=== PATIENT | female | born 1945 | race Two or more races ===

== ENCOUNTER 2017-01-01 22:25 | Emergency (ER) | payer MEDICARE, MEDICAID ==
[~2017-01-01] VITALS: Ht 160 cm; Wt 77.1 kg
[~2017-01-01 22:25] MED LIST: ASPI-231 PO; ATOR40TA52 PO; BEN10T GT; CLOP75TA41 PO; FLUT50SP13; FURO20TA3 PO; ISOS60TA24 PO; MULTCAP45 PO; OXY5T PO; POTA10TA34 PO; POTA10TA51 PO; SACC250C PO
[2017-01-02 04:39] LABS: Basophils # (auto) 0 uL; Basophils % (auto) 0.4 % (0.0-2.0); Eosinophils # (auto) 0.2 uL; Eosinophils % (auto) 6.6 % (0.0-7.0); Hematocrit 32.5 % (36.0-46.0); Hemoglobin 10.3 g/dL (12.2-16.2); Lymphocytes # (auto) 1.3 uL; Lymphocytes % (auto) 38.8 % (10.0-50.0); Mean Corpuscular Hemoglobin 30.2 pg (28.0-32.0); Mean Corpuscular Hgb Conc. 31.7 g/dL (32.0-36.0); Mean Corpuscular Volume 95.3 fL (80.0-100.0); Mean Platelet Volume 8.1 fL (7.4-10.4); Monocytes # (auto) 0.4 uL; Monocytes % (auto) 10.7 % (0.0-12.0); Neutrophils # (auto) 1.4 uL; Neutrophils % (auto) 43.5 % (37.0-80.0); Platelet Count (auto) 196 10^3/uL (140-450); White Blood Cell 3.3 10^3/uL (4.4-10.8)
[2017-01-02 04:58] LABS: Albumin 3.4 g/dL (3.4-5.0); BUN/Creatinine Ratio 11.8; Potassium 3.4 mmol/L (3.5-5.1)
[2017-01-02 05:00] LABS: Bilirubin, Total 0.3 mg/dL (0.2-1.0); Total Protein 6.9 g/dL (6.4-8.2)
[2017-01-02 05:46] LABS: Urine Bilirubin Negative (Negative); Urine Color Yellow (Yellow); Urine Glucose Normal (Normal); Urine Ketone Negative (Negative); Urine Mucus FEW (None Seen); Urine Nitrite Negative (Negative); Urine RBC 874 /hpf (0 - 4); Urine Squamous Epithelial Cell FEW /hpf (<5); Urine pH 5.5 (5.0-8.0)
[2017-01-02 06:00] LABS: Urine Blood 3+ /uL (Negative)
[2017-01-02] MEDS ORDERED: ONDANSETRON ODT 4 MG TAB PO ONE (07:15)
[2017-01-02] MEDS ORDERED: HYDROmorphone HCL 2 MG/ML VL IM ONE (07:15)
[2017-01-02 07:56] VITALS: BP 139/68
== END 2017-01-02 09:53 | disposition home or self-care (01) ==
LOC: ER 22:32
DX: N20.0 Calculus of kidney (principal); N28.1 Cyst of kidney, acquired; F17.210 Nicotine dependence, cigarettes, uncomplicated; K42.9 Umbilical hernia without obstruction or gangrene; Z88.6 Allergy status to analgesic agent; Z88.8 Allergy status to other drugs, medicaments and biological substances; Z91.041 Radiographic dye allergy status; Z87.442 Personal history of urinary calculi; Z95.1 Presence of aortocoronary bypass graft; Z90.710 Acquired absence of both cervix and uterus; Z90.49 Acquired absence of other specified parts of digestive tract
CPT/HCPCS: 36415; 74176; 80053; 80307; 81001; 85025; 96372; 99285; J1170; Q0162

== ENCOUNTER 2017-11-17 21:21 | Emergency (ER) | payer MEDICARE, MEDICAID ==
[~2017-11-17] VITALS: Ht 157.5 cm; Wt 74.8 kg
[2017-11-17 23:00] LABS: Basophils # (auto) 0 uL; Basophils % (auto) 0.5 % (0.0-2.0); Eosinophils # (auto) 0.1 uL; Hematocrit 39.1 % (36.0-46.0); Hemoglobin 12.8 g/dL (12.2-16.2); Lymphocytes # (auto) 0.9 uL; Lymphocytes % (auto) 22.3 % (10.0-50.0); Mean Corpuscular Hgb Conc. 32.8 g/dL (32.0-36.0); Mean Corpuscular Volume 100.4 fL (80.0-100.0); Monocytes # (auto) 0.4 uL; Monocytes % (auto) 9.5 % (0.0-12.0); Neutrophils # (auto) 2.7 uL; Neutrophils % (auto) 65.7 % (37.0-80.0); Nucleated Red Blood Cells % 0.2 %; Platelet Count (auto) 184 10^3/uL (140-450); Red Blood Cells 3.89 10^6/uL (4.0-5.20); White Blood Cell 4.1 10^3/uL (4.4-10.8)
[2017-11-17 23:12] LABS: INR 0.98 (0.9-1.15); Partial Thromboplastin Time 31.1 sec (22.64-33.71); Prothrombin Time 10.7 sec (9.37-12.3)
[2017-11-17 23:28] LABS: Alanine Aminotransferase 38 U/L (13-56); Albumin 3.5 g/dL (3.4-5.0); Anion Gap 8 (5-15); Aspartate Aminotransferase 31 U/L (15-37); BUN/Creatinine Ratio 10.2; Blood Urea Nitrogen 9 mg/dL (7-18); Carbon Dioxide 26 mmol/L (21-32); Chloride 108 mmol/L (98-107); GFR African American 81 mL/min; GFR Non-African American 67 mL/min; Glucose 102 mg/dL (74-106); Potassium 3.8 mmol/L (3.5-5.1); Sodium 142 mmol/L (136-145)
[2017-11-17 23:37] LABS: Alkaline Phosphatase 80 U/L (45-117); Bilirubin, Total 0.3 mg/dL (0.2-1.0); Total Protein 7.3 g/dL (6.4-8.2)
[2017-11-18 04:29] LABS: Urine Bacteria NONE SEEN /hpf (None Seen); Urine Blood 3+ /uL (Negative); Urine Specific Gravity 1.019 (1.001-1.035); Urine WBC 3 /hpf (0 - 5)
[2017-11-18 11:52] VITALS: BP 123/61
== END 2017-11-18 11:54 | disposition home or self-care (01) ==
LOC: ER 21:21
DX: I50.9 Heart failure, unspecified (principal); N39.0 Urinary tract infection, site not specified; R42 Dizziness and giddiness; Z95.1 Presence of aortocoronary bypass graft; Z79.82 Long term (current) use of aspirin; Z88.6 Allergy status to analgesic agent; Z88.8 Allergy status to other drugs, medicaments and biological substances; Z91.041 Radiographic dye allergy status; Z90.710 Acquired absence of both cervix and uterus
CPT/HCPCS: 36415; 71046; 78582; 80053; 81001; 83880; 84484; 85025; 85379; 85610; 85730; 93005; 99285; A9540; A9558

== ENCOUNTER 2017-12-24 22:00 | Emergency (ER) | payer MEDICARE, MEDICAID ==
[~2017-12-24] VITALS: Ht 162.6 cm; Wt 81.6 kg
[2017-12-25 07:55] LABS: Basophils # (auto) 0 uL; Basophils % (auto) 0.4 % (0.0-2.0); Eosinophils # (auto) 0.1 uL; Eosinophils % (auto) 3.2 % (0.0-7.0); Hematocrit 42.6 % (36.0-46.0); Hemoglobin 14.2 g/dL (12.2-16.2); Lymphocytes # (auto) 1.4 uL; Lymphocytes % (auto) 38.6 % (10.0-50.0); Mean Corpuscular Hgb Conc. 33.3 g/dL (32.0-36.0); Mean Corpuscular Volume 99.1 fL (80.0-100.0); Monocytes # (auto) 0.3 uL; Monocytes % (auto) 9.5 % (0.0-12.0); Neutrophils # (auto) 1.7 uL; Neutrophils % (auto) 48.3 % (37.0-80.0); Nucleated Red Blood Cells % 0.1 %; Platelet Count (auto) 188 10^3/uL (140-450); Red Blood Cells 4.29 10^6/uL (4.0-5.20); Red Cell Distribution Width 15.2 % (11.8-14.3); White Blood Cell 3.6 10^3/uL (4.4-10.8)
[2017-12-25] MEDS ORDERED: SODIUM CHLORIDE 0.9% 1,000 ML IV ONE (07:56)
[2017-12-25 08:10] LABS: Alanine Aminotransferase 30 U/L (13-56); Albumin 3.6 g/dL (3.4-5.0); Anion Gap 8 (5-15); Aspartate Aminotransferase 26 U/L (15-37); Blood Urea Nitrogen 8 mg/dL (7-18); Carbon Dioxide 28 mmol/L (21-32); Chloride 106 mmol/L (98-107); GFR African American 101 mL/min; GFR Non-African American 83 mL/min; Glucose 90 mg/dL (74-106); Magnesium 2.5 mg/dL (1.6-2.6); Potassium 3.6 mmol/L (3.5-5.1); Sodium 142 mmol/L (136-145)
[2017-12-25 08:12] LABS: Partial Thromboplastin Time 28.7 sec (22.64-33.71); Prothrombin Time 10.9 sec (9.37-12.3)
[2017-12-25 08:14] LABS: Alkaline Phosphatase 95 U/L (45-117); Bilirubin, Total 0.5 mg/dL (0.2-1.0)
[2017-12-25] MEDS ORDERED: HYDROcodone-ACET 5/325MG TAB PO ONE (09:00)
[2017-12-25 09:16] VITALS: BP 124/63
== END 2017-12-25 12:14 | disposition home or self-care (01) ==
LOC: EDBD 22:00 → ER 22:03
DX: S00.03XA Contusion of scalp, initial encounter (principal); I25.10 Atherosclerotic heart disease of native coronary artery without angina pectoris; N39.0 Urinary tract infection, site not specified; R55 Syncope and collapse; I50.9 Heart failure, unspecified; E78.5 Hyperlipidemia, unspecified; Z90.89 Acquired absence of other organs; Z90.710 Acquired absence of both cervix and uterus; Z95.1 Presence of aortocoronary bypass graft; Z79.899 Other long term (current) drug therapy; Z88.8 Allergy status to other drugs, medicaments and biological substances; Z91.041 Radiographic dye allergy status; W22.8XXA Striking against or struck by other objects, initial encounter; Y93.89 Activity, other specified; Y99.8 Other external cause status; Y92.89 Other specified places as the place of occurrence of the external cause
CPT/HCPCS: 36415; 70450; 71045; 80053; 83735; 83880; 84443; 84484; 85025; 85379; 85610; 85730; 93005; 94761

== ENCOUNTER 2018-07-25 11:31 | Emergency (ER) | payer MEDICARE, MEDICAID ==
[~2018-07-25] VITALS: Ht 170.2 cm; Wt 93.0 kg
[~2018-07-25 11:31] MED LIST changes: -POTA10TA34 PO; +POTA1TAB61 PO
[2018-07-25] MEDS ORDERED: FUROSEMIDE 40 MG/4 ML VIAL IV ONE (12:00)
[2018-07-25 13:17] VITALS: BP 129/68
[2018-07-25 13:54] LABS: Urine Bacteria FEW /hpf (None Seen); Urine Blood TRACE /uL (Negative); Urine Mucus FEW (None Seen); Urine Specific Gravity 1.006 (1.001-1.035); Urine WBC 1 /hpf (0 - 5)
[2018-07-25 14:11] LABS: Basophils # (auto) 0 uL; Basophils % (auto) 0.4 % (0.0-2.0); Eosinophils # (auto) 0.1 uL; Eosinophils % (auto) 2.2 % (0.0-7.0); Hematocrit 36.1 % (36.0-46.0); Lymphocytes # (auto) 0.8 uL; Lymphocytes % (auto) 20.8 % (10.0-50.0); Mean Corpuscular Hemoglobin 32.9 pg (28.0-32.0); Mean Corpuscular Hgb Conc. 33.1 g/dL (32.0-36.0); Mean Corpuscular Volume 99.2 fL (80.0-100.0); Monocytes # (auto) 0.4 uL; Monocytes % (auto) 9.6 % (0.0-12.0); Neutrophils # (auto) 2.6 uL; Nucleated Red Blood Cells % 0.1 %; Platelet Count (auto) 133 10^3/uL (140-450); Red Blood Cells 3.64 10^6/uL (4.0-5.20); Red Cell Distribution Width 14.4 % (11.8-14.3); White Blood Cell 3.9 10^3/uL (4.4-10.8)
[2018-07-25 14:17] LABS: Albumin 3.4 g/dL (3.4-5.0); Anion Gap 6 (5-15); Aspartate Aminotransferase 31 U/L (15-37); BUN/Creatinine Ratio 11.7; Blood Urea Nitrogen 9 mg/dL (7-18); Calcium 8.3 mg/dL (8.5-10.1); Carbon Dioxide 30 mmol/L (21-32); Chloride 106 mmol/L (98-107); GFR African American 95 mL/min; GFR Non-African American 78 mL/min; Glucose 89 mg/dL (74-106); Potassium 3.9 mmol/L (3.5-5.1); Sodium 142 mmol/L (136-145)
[2018-07-25 14:21] LABS: INR 0.98 (0.9-1.15); Partial Thromboplastin Time 30.5 sec (23.78-33.04); Prothrombin Time 10.5 sec (9.27-12.13)
[2018-07-25 14:25] LABS: Alanine Aminotransferase 39 U/L (13-56); Alkaline Phosphatase 83 U/L (45-117); Bilirubin, Total 0.3 mg/dL (0.2-1.0); Total Protein 7.1 g/dL (6.4-8.2)
== END 2018-07-25 15:42 | disposition home or self-care (01) ==
LOC: ER 11:31 → EDBD 11:31 → ER 15:42
DX: I11.0 Hypertensive heart disease with heart failure (principal); I50.9 Heart failure, unspecified; J98.01 Acute bronchospasm; Z90.710 Acquired absence of both cervix and uterus; Z90.89 Acquired absence of other organs; Z95.1 Presence of aortocoronary bypass graft; Z79.899 Other long term (current) drug therapy; Z88.6 Allergy status to analgesic agent; Z88.8 Allergy status to other drugs, medicaments and biological substances; Z91.041 Radiographic dye allergy status
CPT/HCPCS: 36415; 71045; 80053; 81001; 83880; 84484; 85025; 85610; 85730; 93005; 96374; 99284; J1940

== ENCOUNTER 2020-04-20 22:30 | Emergency (ER) | payer MEDICARE, MEDICAID ==
[~2020-04-20] VITALS: Ht 157.5 cm; Wt 71.2 kg
[~2020-04-20 22:30] MED LIST changes: -BEN10T GT; +BENA10TA10 GT
[2020-04-21 05:00] VITALS: BP 100/40
== END 2020-04-21 06:40 | disposition home or self-care (01) ==
LOC: ER 22:30 → EDBD 22:30 → ER 04-21 06:40
DX: S16.1XXA Strain of muscle, fascia and tendon at neck level, initial encounter (principal); S80.02XA Contusion of left knee, initial encounter; S80.01XA Contusion of right knee, initial encounter; X58.XXXA Exposure to other specified factors, initial encounter; Y93.89 Activity, other specified; Y92.89 Other specified places as the place of occurrence of the external cause; Y99.8 Other external cause status
CPT/HCPCS: 70450; 70486; 72125; 72128; 73560; 73620

== ENCOUNTER 2024-01-27 22:53 | Inpatient (IN) | payer MEDICARE, MEDICAID ==
[~2024-01-27] VITALS: Ht 157.5 cm; Wt 83.6 kg
[~2024-01-27 22:53] MED LIST changes: -ASPI-231 PO; +ASPI1TAB20 PO; -BENA10TA10 GT; +BENA10TA16 GT; -CLOP75TA41 PO; +CLOP75TA70 PO; +ISOS1TAB29 PO; -ISOS60TA24 PO; +POTA-215 PO; +POTA-36 PO; -POTA10TA51 PO; -POTA1TAB61 PO
[2024-01-28 00:57] VITALS: BP 138/73; PULSE 79; RESP 17; TEMP 98.1
[2024-01-28 01:41] LABS: Basophils # (auto) 0.1 10 ^3/uL (0-0.2); Basophils % (auto) 1.4 % (0.0-2.0); Eosinophils # (auto) 0.2 10 ^3/uL (0-0.8); Eosinophils % (auto) 6.3 % (0.0-7.0); Hematocrit 34.9 % (36.0-46.0); Hemoglobin 11.4 g/dL (12.2-16.2); Lymphocytes # (auto) 1.6 10 ^3/uL (0.4-5.4); Lymphocytes % (auto) 42.8 % (10.0-50.0); Mean Corpuscular Hgb Conc. 32.7 g/dL (32.0-36.0); Mean Corpuscular Volume 103.8 fL (80.0-100.0); Monocytes # (auto) 0.4 10 ^3/uL (0-1.3); Monocytes % (auto) 11.3 % (0.0-12.0); Neutrophils # (auto) 1.4 10 ^3/uL (1.6-8.6); Neutrophils % (auto) 38.2 % (37.0-80.0); Nucleated Red Blood Cells % 0.3 %; Red Blood Cells 3.36 10^6/uL (4.0-5.20); White Blood Cell 3.7 10^3/uL (4.4-10.8)
[2024-01-28 01:51] LABS: Chloride 107 mmol/L (98-107); Potassium 3.2 mmol/L (3.5-5.1); Sodium 141 mmol/L (136-145)
[2024-01-28 01:52] LABS: Anion Gap 8 (5-15); Carbon Dioxide 26 mmol/L (20-30)
[2024-01-28 01:57] LABS: BUN/Creatinine Ratio 6.8 (10.0-20.0); Blood Urea Nitrogen < 5 mg/dL (9-23); Glucose 90 mg/dL (74-106)
[2024-01-28] MEDS ORDERED: hydrALAZINE HCL 20 MG/ML VL IV PRN (02:45)
[2024-01-28 03:10] LABS: Albumin 4.5 g/dL (3.2-4.8); Bilirubin, Total 0.8 mg/dL (0.2-1.0); Total Protein 7.8 g/dL (5.7-8.2)
[2024-01-28] MEDS ORDERED: NITROGLYCERIN 0.4 MG SL TAB SL PRN (06:30)
[2024-01-28] MEDS ORDERED: DOCUSATE SOD 100 MG CAP PO PRN (06:30)
[2024-01-28 10:08] VITALS: PULSE 81; RESP 23; O2SAT 93
[2024-01-28] MEDS: ASPirin 81 mg TAB PO SCH (11:28)
[2024-01-28] MEDS: FUROSEMIDE 20 MG/2 ML VIAL IV SCH (12:09)
[2024-01-28] MEDS: POTASSIUM EFFERVESENT TAB 25 MEQ PO ONE (12:39)
[2024-01-28] MEDS: cefTRIAXone 1GM/50ML D5W 50 ML IV ONE (13:03)
[2024-01-28] MEDS: MORPHINE SULFATE INJ 2 MG/ml SYRG IV PRN (13:04)
[2024-01-28 13:07] LABS: Urine Bacteria FEW /hpf (None Seen); Urine Blood 1+ /uL (Negative); Urine Clarity Turbid (Clear); Urine Color Light-Yellow (Yellow); Urine Protein, UAD Negative (Negative); Urine Specific Gravity 1.005 (1.001-1.035); Urine Urobilinogen Normal (Negative); Urine WBC 1 /hpf (0 - 5); Urine pH 6.5 (5.0-9.0)
[2024-01-28] MEDS: SODIUM CHLOR 0.9% PF (SALINE LOCK) 10ML VIAL/SYR IV SCH (14:03)
[2024-01-28] MEDS: oxyCODONE ER 10 MG TAB PO PRN (18:28)
[2024-01-28 19:45] VITALS: PULSE 78; RESP 20; O2SAT 96
[2024-01-28] MEDS: ATORVASTATIN 20 MG TAB PO SCH (22:00)
[2024-01-28] MEDS: oxyCODONE HCL 5MG TAB PO PRN (23:29)
[2024-01-29] VITALS (8 sets, daily range): BP systolic 105–143; BP diastolic 56–80; PULSE 70–86; RESP 16–22; TEMP 97.6–98.1; O2SAT 95–98
[2024-01-29 06:15] LABS: Basophils # (auto) 0 10 ^3/uL (0-0.2); Basophils % (auto) 1.4 % (0.0-2.0); Eosinophils # (auto) 0.2 10 ^3/uL (0-0.8); Eosinophils % (auto) 7.1 % (0.0-7.0); Hematocrit 28.3 % (36.0-46.0); Hemoglobin 9.5 g/dL (12.2-16.2); Lymphocytes # (auto) 1.5 10 ^3/uL (0.4-5.4); Lymphocytes % (auto) 52.3 % (10.0-50.0); Mean Corpuscular Hemoglobin 33.9 pg (28.0-32.0); Mean Corpuscular Hgb Conc. 33.7 g/dL (32.0-36.0); Mean Corpuscular Volume 100.8 fL (80.0-100.0); Monocytes # (auto) 0.4 10 ^3/uL (0-1.3); Neutrophils # (auto) 0.7 10 ^3/uL (1.6-8.6); Neutrophils % (auto) 26.2 % (37.0-80.0); Nucleated Red Blood Cells % 0.3 %; Red Blood Cells 2.81 10^6/uL (4.0-5.20); Red Cell Distribution Width 15.6 % (11.8-14.3); White Blood Cell 2.8 10^3/uL (4.4-10.8)
[2024-01-29 06:33] LABS: Alanine Aminotransferase 57 U/L (7-40); Albumin 3.6 g/dL (3.2-4.8); Alkaline Phosphatase 68 U/L (46-116); Anion Gap 3 (5-15); Aspartate Aminotransferase 73 U/L (13-40); BUN/Creatinine Ratio 14.9 (10.0-20.0); Blood Urea Nitrogen 10 mg/dL (9-23); Calcium 9.2 mg/dL (8.7-10.4); Carbon Dioxide 33 mmol/L (20-30); Chloride 107 mmol/L (98-107); Glucose 98 mg/dL (74-106); Potassium 3.7 mmol/L (3.5-5.1); Sodium 143 mmol/L (136-145)
[2024-01-29 06:34] LABS: Bilirubin, Total 0.5 mg/dL (0.2-1.0); Total Protein 6.4 g/dL (5.7-8.2)
[2024-01-29] MEDS: cefTRIAXone 1GM/50ML D5W 50 ML IV SCH (09:09)
[2024-01-29] MEDS ORDERED: APIX5TAB PO (19:26)
[2024-01-29] MEDS ORDERED: OXYC15TA PO (19:26)
[2024-01-29] MEDS ORDERED: LISI10TA34 PO (19:26)
[2024-01-29] MEDS ORDERED: LEVO750T40 PO (19:26)
[2024-01-30 01:00] VITALS: BP 128/66; PULSE 71; RESP 20; TEMP 98.1; O2SAT 97
[2024-01-30 08:00] VITALS: PULSE 72; O2SAT 97
[2024-01-30 09:00] VITALS: BP 128/59; PULSE 71; RESP 18; O2SAT 97
[2024-01-30 17:00] VITALS: BP 117/61; PULSE 83; RESP 19; TEMP 97.8; O2SAT 100
[2024-01-30 20:00] VITALS: PULSE 82; O2SAT 97
[2024-01-30 21:00] VITALS: BP 121/59; PULSE 80; RESP 20; TEMP 98; O2SAT 91
[2024-01-31 01:00] VITALS: BP 133/52; PULSE 76; RESP 20; TEMP 99.2; O2SAT 91
[2024-01-31 08:00] VITALS: PULSE 70
[2024-01-31 09:00] VITALS: BP 121/62; PULSE 74; RESP 18; TEMP 98.4; O2SAT 98
[2024-01-31 13:00] VITALS: BP 124/43; PULSE 72; RESP 17; TEMP 99; O2SAT 100
[2024-01-31 20:00] VITALS: PULSE 77; RESP 18; O2SAT 97
[2024-01-31 21:00] VITALS: BP 143/71; PULSE 77; RESP 18; TEMP 97.7; O2SAT 97
[2024-02-01] VITALS (7 sets, daily range): BP systolic 112–140; BP diastolic 34–67; PULSE 70–85; RESP 16–19; TEMP 97.7–98.3; O2SAT 92–96
[2024-02-01] MEDS: ONDANSETRON HCL 4 MG/2 ML VIAL IV PRN (10:31)
[2024-02-01] MEDS: MORPHINE SULFATE INJ 2 MG/ml SYRG IV PRN (15:48)
[2024-02-02 05:00] VITALS: BP 142/69; PULSE 77; RESP 20; TEMP 97.7; O2SAT 97
[2024-02-02 07:30] VITALS: PULSE 69; RESP 18; O2SAT 93
[2024-02-02 07:30] LABS: Basophils # (auto) 0 10 ^3/uL (0-0.2); Eosinophils # (auto) 0.1 10 ^3/uL (0-0.8); Hemoglobin 10.7 g/dL (12.2-16.2); Lymphocytes # (auto) 1.3 10 ^3/uL (0.4-5.4); Monocytes # (auto) 0.3 10 ^3/uL (0-1.3); Neutrophils # (auto) 0.6 10 ^3/uL (1.6-8.6)
[2024-02-02 07:36] LABS: Basophils % (auto) 1.6 % (0.0-2.0); Chloride 105 mmol/L (98-107); Hematocrit 31.7 % (36.0-46.0); Lymphocytes % (auto) 54.7 % (10.0-50.0); Mean Corpuscular Hemoglobin 34.7 pg (28.0-32.0); Mean Corpuscular Hgb Conc. 33.7 g/dL (32.0-36.0); Mean Corpuscular Volume 103.1 fL (80.0-100.0); Monocytes % (auto) 13.2 % (0.0-12.0); Neutrophils % (auto) 24.5 % (37.0-80.0); Nucleated Red Blood Cells % 0.4 %; Red Blood Cells 3.08 10^6/uL (4.0-5.20); Red Cell Distribution Width 15.7 % (11.8-14.3); Sodium 140 mmol/L (136-145); White Blood Cell 2.4 10^3/uL (4.4-10.8)
[2024-02-02 07:37] LABS: Anion Gap 7 (5-15); Calcium 9.8 mg/dL (8.7-10.4); Carbon Dioxide 28 mmol/L (20-30)
[2024-02-02 07:42] LABS: BUN/Creatinine Ratio 21.7 (10.0-20.0); Blood Urea Nitrogen 15 mg/dL (9-23); Glucose 95 mg/dL (74-106)
[2024-02-02] MEDS: MORPHINE SULFATE INJ 2 MG/ml SYRG IV PRN (08:55)
[2024-02-02 17:00] VITALS: BP 122/60; PULSE 72; RESP 18; TEMP 98.2; O2SAT 97
[2024-02-02 20:00] VITALS: PULSE 79; PULSE 80; RESP 18; O2SAT 94
[2024-02-02 21:00] VITALS: BP 129/59; PULSE 80; RESP 18; TEMP 98.1; O2SAT 94
[2024-02-03 05:00] VITALS: BP 134/78; PULSE 70; RESP 18; TEMP 97.9; O2SAT 98
[2024-02-03] MEDS ORDERED: GADOTERATE MEG 10 MMOL/20ml INJ (0.5MMOL/ml) IV ONE (07:12)
[2024-02-03 08:00] VITALS: PULSE 74; RESP 18; O2SAT 99
[2024-02-03 09:09] LABS: Hepatitis B Core Total AB Negative (Negative)
[2024-02-03 09:50] LABS: Hepatitis A Total Antibody Negative (Negative); Hepatitis B Surface Antibody Negative (Negative); Hepatitis B Surface Antigen Negative (Negative); Hepatitis C Antibody Negative (Negative)
[2024-02-03 13:00] VITALS: BP 138/73; PULSE 70; RESP 18; TEMP 97.9; O2SAT 98
[2024-02-03 17:00] VITALS: BP 139/80; PULSE 73; RESP 16; TEMP 98.1; O2SAT 99
[2024-02-03 20:00] VITALS: BP 124/43; PULSE 78; PULSE 82; PULSE 89; RESP 18; TEMP 98; O2SAT 94
[2024-02-03 21:00] VITALS: BP 124/43; PULSE 78; RESP 18; TEMP 98; O2SAT 100
[2024-02-04 05:00] VITALS: BP 125/49; PULSE 74; RESP 18; TEMP 97.8; O2SAT 92
[2024-02-04 08:00] VITALS: PULSE 73; PULSE 80; RESP 17; O2SAT 97
[2024-02-04 08:42] VITALS: BP 125/64; PULSE 80; RESP 17; TEMP 97.8; O2SAT 97
[2024-02-04] MEDS ORDERED: CIPR-173 PO (10:56)
[2024-02-04] MEDS ORDERED: OXY20CRT PO (10:56)
[2024-02-04 12:27] VITALS: BP 125/64; PULSE 80; RESP 17; TEMP 97.8; O2SAT 97
== END 2024-02-04 13:50 | disposition home or self-care (01) | DRG 872 ==
LOC: ER 22:53 → TELE 01-28 06:21 → TELE-EAST 01-28 23:40
PROVIDERS: ADMIT Nurse Practitioner Family; ATTEND Family Medicine
DX: A41.9 Sepsis, unspecified organism (principal); D61.818 Other pancytopenia; N39.0 Urinary tract infection, site not specified; I50.32 Chronic diastolic (congestive) heart failure; I11.0 Hypertensive heart disease with heart failure; E87.6 Hypokalemia; E78.00 Pure hypercholesterolemia, unspecified; G89.4 Chronic pain syndrome; K59.00 Constipation, unspecified; K76.89 Other specified diseases of liver; N20.0 Calculus of kidney; I48.91 Unspecified atrial fibrillation; Z95.1 Presence of aortocoronary bypass graft; Z88.6 Allergy status to analgesic agent; Z88.5 Allergy status to narcotic agent; Z88.8 Allergy status to other drugs, medicaments and biological substances; Z79.899 Other long term (current) drug therapy; Z88.3 Allergy status to other anti-infective agents; Z82.49 Family history of ischemic heart disease and other diseases of the circulatory system; Z90.710 Acquired absence of both cervix and uterus; Z90.49 Acquired absence of other specified parts of digestive tract; Z91.041 Radiographic dye allergy status; I25.2 Old myocardial infarction; Z86.73 Personal history of transient ischemic attack (TIA), and cerebral infarction without residual deficits; Z87.442 Personal history of urinary calculi; Z86.718 Personal history of other venous thrombosis and embolism; Z79.02 Long term (current) use of antithrombotics/antiplatelets; Z79.01 Long term (current) use of anticoagulants; Z79.82 Long term (current) use of aspirin; Z79.891 Long term (current) use of opiate analgesic; Z82.3 Family history of stroke; Z80.0 Family history of malignant neoplasm of digestive organs
CPT/HCPCS: 36415; 74176; 76705; 80048; 80053; 81001; 82040; 82105; 82247; 82378; 83880; 84075; 84155; 84450; 84460; 84484; 85025; 86704; 86706; 86708; 86803; 87045; 87086; 87340; 87427; 93005; 93306; 96361; 96365; G0378; J2405

== ENCOUNTER 2024-02-04 21:31 | Inpatient (IN) | payer MEDICARE, MEDICAID ==
[~2024-02-04] VITALS: Ht 157.5 cm; Wt 93.2 kg
[~2024-02-04 21:31] MED LIST changes: +APIX5TAB PO; +CIPR-173 PO; +LEVO750T40 PO; +LISI10TA34 PO; +OXY20CRT PO; +OXYC15TA PO
[2024-02-04 23:26] LABS: Basophils # (auto) 0 10 ^3/uL (0-0.2); Basophils % (auto) 1.2 % (0.0-2.0); Chloride 105 mmol/L (98-107); Eosinophils # (auto) 0.1 10 ^3/uL (0-0.8); Lymphocytes # (auto) 1.3 10 ^3/uL (0.4-5.4); Monocytes # (auto) 0.2 10 ^3/uL (0-1.3); Neutrophils # (auto) 1.4 10 ^3/uL (1.6-8.6); Potassium 3.9 mmol/L (3.5-5.1); Sodium 140 mmol/L (136-145); White Blood Cell 3.1 10^3/uL (4.4-10.8)
[2024-02-04 23:27] LABS: Anion Gap 4 (5-15); Calcium 10.2 mg/dL (8.5-10.1); Carbon Dioxide 31 mmol/L (20-30)
[2024-02-04 23:28] LABS: Eosinophils % (auto) 3.3 % (0.0-7.0); Hematocrit 36.3 % (36.0-46.0); Lymphocytes % (auto) 43.3 % (10.0-50.0); Mean Corpuscular Hgb Conc. 33.2 g/dL (32.0-36.0); Mean Corpuscular Volume 102.4 fL (80.0-100.0); Monocytes % (auto) 6.2 % (0.0-12.0); Nucleated Red Blood Cells % 0.4 %; Red Blood Cells 3.54 10^6/uL (4.0-5.20); Red Cell Distribution Width 16.1 % (11.8-14.3)
[2024-02-04 23:32] LABS: BUN/Creatinine Ratio 16.9 (10.0-20.0); Blood Urea Nitrogen 13 mg/dL (9-23); Glucose 94 mg/dL (74-106)
[2024-02-04 23:41] LABS: INR 1.01 (0.9-1.15); Prothrombin Time 10.7 sec (9.3-11.8)
[2024-02-05] MEDS ORDERED: hydrALAZINE HCL 20 MG/ML VL IV PRN (00:15)
[2024-02-05] MEDS ORDERED: ONDANSETRON HCL 4 MG/2 ML VIAL IV PRN (00:15)
[2024-02-05] MEDS ORDERED: MORPHINE SULFATE INJ 2 MG/ml SYRG IV PRN (06:30)
[2024-02-05] MEDS ORDERED: NITROGLYCERIN 0.4 MG SL TAB SL PRN (06:30)
[2024-02-05] MEDS: SODIUM CHLOR 0.9% PF (SALINE LOCK) 10ML VIAL/SYR IV SCH (06:56)
[2024-02-05 08:10] VITALS: PULSE 66; RESP 18; O2SAT 97
[2024-02-05] MEDS: BENAZEPRIL HCL 10 MG TAB PO SCH (10:39)
[2024-02-05] MEDS: APIXABAN 5 MG TAB PO SCH (10:40)
[2024-02-05] MEDS: MULTIPLE VITAMIN TAB PO SCH (10:40)
[2024-02-05 11:29] LABS: Urine Bacteria None Seen /hpf (None Seen)
[2024-02-05 12:00] LABS: Urine Blood 3+ /uL (Negative); Urine Clarity Turbid (Clear); Urine Color Light-Brown (Yellow); Urine Mucus FEW (None Seen); Urine Protein, UAD 2+ (Negative); Urine Specific Gravity 1.023 (1.001-1.035); Urine Urobilinogen Normal (Negative); Urine WBC 80 /hpf (0 - 5)
[2024-02-05] MEDS: cefTRIAXone 1GM/50ML D5W 50 ML IV ONE (15:47)
[2024-02-05] MEDS: oxyCODONE HCL 5MG TAB PO PRN (17:25)
[2024-02-05 19:30] VITALS: PULSE 85; RESP 16; O2SAT 98
[2024-02-05 19:45] VITALS: PULSE 86; RESP 16; O2SAT 98
[2024-02-05 20:00] VITALS: PULSE 76
[2024-02-05] MEDS: HYDROmorphone HCL 2 MG/ML VL/or syr IV ONE (20:11)
[2024-02-05 21:00] VITALS: BP 117/83; PULSE 77; RESP 18; TEMP 98.3; O2SAT 95
[2024-02-05 21:15] LABS: Hematocrit 33.6 % (36.0-46.0); Hemoglobin 11.2 g/dL (12.2-16.2); White Blood Cell 2.5 10^3/uL (4.4-10.8)
[2024-02-05 21:17] LABS: Mean Corpuscular Hgb Conc. 33.5 g/dL (32.0-36.0); Mean Corpuscular Volume 101.6 fL (80.0-100.0)
[2024-02-05 21:34] LABS: Alanine Aminotransferase 92 U/L (7-40); Albumin 4.2 g/dL (3.2-4.8); Alkaline Phosphatase 84 U/L (46-116); Anion Gap 5 (5-15); Aspartate Aminotransferase 93 U/L (13-40); BUN/Creatinine Ratio 12.1 (10.0-20.0); Blood Urea Nitrogen 8 mg/dL (9-23); Calcium 9.9 mg/dL (8.5-10.1); Carbon Dioxide 29 mmol/L (20-30); Chloride 108 mmol/L (98-107); Glucose 130 mg/dL (74-106); Potassium 3.7 mmol/L (3.5-5.1); Sodium 142 mmol/L (136-145)
[2024-02-05 21:35] LABS: Bilirubin, Total 0.5 mg/dL (0.2-1.0); Total Protein 7.3 g/dL (5.7-8.2)
[2024-02-05] MEDS: ATORVASTATIN 20 MG TAB PO SCH (22:00)
[2024-02-05 22:09] LABS: Band Neutrophils % (manual) 0; Basophils % (manual) 0 (0.0-2.0); Blast Cells 0; Metamyelocytes % 0; Myelocytes % 0; Promyelocytes % 0; Reactive Lymphocytes 0
[2024-02-05 22:32] LABS: Anisocytosis Slight; Eosinophils % (manual) 2 (0-7); Lymphocytes % (manual) 56 (10.0-50.0); Macrocytosis Slight; Monocytes % (manual) 11 (0-12); Platelet Estimate Decreased
[2024-02-05 22:33] LABS: Ovalocytes FEW
[2024-02-06] VITALS (9 sets, daily range): BP systolic 109–134; BP diastolic 56–79; PULSE 69–87; RESP 16–19; TEMP 97.9–98.4; O2SAT 94–98
[2024-02-06] MEDS: cefTRIAXone 1GM/50ML D5W 50 ML IV SCH (09:25)
[2024-02-06] MEDS: DOCUSATE SOD 100 MG CAP PO PRN (09:26)
[2024-02-06 10:05] LABS: Basophils # (auto) 0 10 ^3/uL (0-0.2); Basophils % (auto) 0.7 % (0.0-2.0); Eosinophils # (auto) 0.1 10 ^3/uL (0-0.8); Eosinophils % (auto) 3.6 % (0.0-7.0); Hematocrit 34.9 % (36.0-46.0); Hemoglobin 11.4 g/dL (12.2-16.2); Lymphocytes # (auto) 1.5 10 ^3/uL (0.4-5.4); Lymphocytes % (auto) 54.7 % (10.0-50.0); Mean Corpuscular Hemoglobin 34.7 pg (28.0-32.0); Mean Corpuscular Hgb Conc. 32.6 g/dL (32.0-36.0); Mean Corpuscular Volume 106.3 fL (80.0-100.0); Monocytes # (auto) 0.3 10 ^3/uL (0-1.3); Monocytes % (auto) 10.8 % (0.0-12.0); Neutrophils # (auto) 0.8 10 ^3/uL (1.6-8.6); Neutrophils % (auto) 30.2 % (37.0-80.0); Nucleated Red Blood Cells % 0.3 %; Red Blood Cells 3.29 10^6/uL (4.0-5.20); Red Cell Distribution Width 16.6 % (11.8-14.3); White Blood Cell 2.7 10^3/uL (4.4-10.8)
[2024-02-06 10:13] LABS: Alanine Aminotransferase 104 U/L (7-40); Albumin 4.1 g/dL (3.2-4.8); Alkaline Phosphatase 83 U/L (46-116); Anion Gap 6 (5-15); Aspartate Aminotransferase 116 U/L (13-40); Blood Urea Nitrogen 9 mg/dL (9-23); Calcium 9.7 mg/dL (8.5-10.1); Carbon Dioxide 26 mmol/L (20-30); Chloride 109 mmol/L (98-107); Glucose 106 mg/dL (74-106); Potassium 3.8 mmol/L (3.5-5.1); Sodium 141 mmol/L (136-145)
[2024-02-06 10:14] LABS: Bilirubin, Total 0.6 mg/dL (0.2-1.0); Total Protein 7.2 g/dL (5.7-8.2)
[2024-02-06 11:52] LABS: Anisocytosis Slight; Platelet Estimate Decreased
[2024-02-06] MEDS: oxyCODONE HCL 5MG TAB PO PRN (20:16)
[2024-02-07] VITALS (8 sets, daily range): BP systolic 103–125; BP diastolic 50–76; PULSE 70–94; RESP 16–19; TEMP 97.9–98.5; O2SAT 94–100
[2024-02-07] MEDS ORDERED: oxyCODONE HCL 5MG TAB PO PRN (13:15)
[2024-02-07] MEDS: oxyCODONE HCL 5MG TAB PO PRN (16:47)
[2024-02-07 19:48] LABS: Hemoglobin 11.1 g/dL (12.2-16.2)
[2024-02-07 19:49] LABS: Hematocrit 33.2 % (36.0-46.0); Mean Corpuscular Hemoglobin 33.8 pg (28.0-32.0); Mean Corpuscular Hgb Conc. 33.4 g/dL (32.0-36.0); Mean Corpuscular Volume 101.2 fL (80.0-100.0); Red Blood Cells 3.28 10^6/uL (4.0-5.20); Red Cell Distribution Width 15.8 % (11.8-14.3)
[2024-02-07 19:51] LABS: Basophils % (manual) 0 (0.0-2.0); Blast Cells 0; Metamyelocytes % 0; Myelocytes % 0; Promyelocytes % 0; Reactive Lymphocytes 0
[2024-02-07 20:16] LABS: Alanine Aminotransferase 115 U/L (7-40); Albumin 4.1 g/dL (3.2-4.8); Alkaline Phosphatase 86 U/L (46-116); Anion Gap 7 (5-15); Aspartate Aminotransferase 121 U/L (13-40); Bilirubin, Total 0.7 mg/dL (0.2-1.0); Blood Urea Nitrogen 13 mg/dL (9-23); Calcium 9.4 mg/dL (8.5-10.1); Carbon Dioxide 26 mmol/L (20-30); Chloride 107 mmol/L (98-107); Cholesterol 110 mg/dL (< 200); Glucose 150 mg/dL (74-106); HDL Cholesterol 30 mg/dL (40-59); LDL Cholesterol 65 mg/dL (< 100); Magnesium 1.9 mg/dL (1.6-2.6); Potassium 3.4 mmol/L (3.5-5.1); Sodium 140 mmol/L (136-145); Triglycerides 82 mg/dL (< 150)
[2024-02-07 20:17] LABS: Folate (Folic Acid) 17.21 ng/mL (>5.38)
[2024-02-07 20:39] LABS: % Iron Saturation 29.5 % (15-50)
[2024-02-07 20:43] LABS: Erythrocyte Sedimentation Rate 20 mm/hr (0-20)
[2024-02-07 20:49] LABS: Band Neutrophils % (manual) 3; Eosinophils % (manual) 3 (0-7); Lymphocytes % (manual) 57 (10.0-50.0); Monocytes % (manual) 8 (0-12)
[2024-02-07 20:50] LABS: Anisocytosis Slight; Large Platelets FEW; Macrocytosis Slight; Ovalocytes FEW; Platelet Estimate Decrea; Tear Drop Cells FEW
[2024-02-07] MEDS ORDERED: LORazepam 2MG/ML-1ML VIAL IV PRN (21:30)
[2024-02-07] MEDS: POTASSIUM CHL 20 Meq TABLET PO ONE (23:39)
[2024-02-08] VITALS (8 sets, daily range): BP systolic 112–156; BP diastolic 54–74; PULSE 79–94; RESP 16–20; TEMP 98.1–98.4; O2SAT 95–100
[2024-02-08 07:09] LABS: Basophils # (auto) 0 10 ^3/uL (0-0.2); Eosinophils # (auto) 0.2 10 ^3/uL (0-0.8); Hemoglobin 11.8 g/dL (12.2-16.2); Lymphocytes # (auto) 1.8 10 ^3/uL (0.4-5.4); Monocytes # (auto) 0.3 10 ^3/uL (0-1.3); White Blood Cell 3.4 10^3/uL (4.4-10.8)
[2024-02-08 07:13] LABS: Basophils % (auto) 1.4 % (0.0-2.0); Eosinophils % (auto) 5.1 % (0.0-7.0); Hematocrit 35.5 % (36.0-46.0); Lymphocytes % (auto) 53.5 % (10.0-50.0); Mean Corpuscular Hemoglobin 34.8 pg (28.0-32.0); Mean Corpuscular Hgb Conc. 33.2 g/dL (32.0-36.0); Monocytes % (auto) 9.9 % (0.0-12.0); Neutrophils % (auto) 30.1 % (37.0-80.0); Nucleated Red Blood Cells % 0.4 %; Red Blood Cells 3.38 10^6/uL (4.0-5.20); Red Cell Distribution Width 16.6 % (11.8-14.3)
[2024-02-08 09:23] LABS: Alanine Aminotransferase 102 U/L (7-40); Albumin 4.1 g/dL (3.2-4.8); Alkaline Phosphatase 84 U/L (46-116); Anion Gap 5 (5-15); Aspartate Aminotransferase 98 U/L (13-40); BUN/Creatinine Ratio 15.9 (10.0-20.0); Bilirubin, Total 0.5 mg/dL (0.2-1.0); Blood Urea Nitrogen 11 mg/dL (9-23); Calcium 9.6 mg/dL (8.5-10.1); Carbon Dioxide 25 mmol/L (20-30); Chloride 110 mmol/L (98-107); Glucose 91 mg/dL (74-106); Magnesium 2.1 mg/dL (1.6-2.6); Potassium 4.4 mmol/L (3.5-5.1); Sodium 140 mmol/L (136-145)
[2024-02-08] MEDS: ASPirin 81 mg TAB PO SCH (10:52)
[2024-02-08] MEDS ORDERED: METH-928 PO (12:32)
[2024-02-08] MEDS ORDERED: ATOR-47 PO (12:42)
[2024-02-08] MEDS ORDERED: POTA-180 PO (12:42)
[2024-02-08] MEDS ORDERED: OXYC15TA PO (12:47)
[2024-02-08 22:14] LABS: Urine Bacteria None Seen /hpf (None Seen)
[2024-02-08 22:23] LABS: Urine Blood TRACE /uL (Negative); Urine Clarity Clear (Clear); Urine Color Light-Yellow (Yellow); Urine Mucus FEW (None Seen); Urine Protein, UAD Negative (Negative); Urine Specific Gravity 1.028 (1.001-1.035); Urine Urobilinogen Normal (Negative); Urine WBC 1 /hpf (0 - 5)
[2024-02-09 01:00] VITALS: BP 139/69; PULSE 82; RESP 18; O2SAT 95
[2024-02-09 07:07] LABS: RPR Non Reactive (Non Reactive)
[2024-02-09 08:00] VITALS: PULSE 83
[2024-02-09 08:15] VITALS: O2SAT 95
[2024-02-09 17:00] VITALS: BP 143/75; PULSE 77; RESP 18; TEMP 98; O2SAT 96
[2024-02-09 20:00] VITALS: PULSE 77; PULSE 82; O2SAT 95
[2024-02-09 21:00] VITALS: BP 146/64; PULSE 77; RESP 18; TEMP 98.2; O2SAT 96
[2024-02-09] MEDS: diphenhdrAMINE HCL 25 MG CAP PO ONE (22:26)
[2024-02-09] MEDS: LINEZOLID 600MG/300ML 300 ML IV SCH (22:26)
[2024-02-10] VITALS (9 sets, daily range): BP systolic 131–151; BP diastolic 47–78; PULSE 71–100; RESP 16–18; TEMP 97.6–98.2; O2SAT 91–99
[2024-02-10] MEDS: diphenhdrAMINE HCL 25 MG CAP PO ONE (02:22)
[2024-02-10] MEDS: diphenhdrAMINE HCL 50 MG/1 ML VL IV ONE (08:59)
[2024-02-10 09:43] LABS: Alanine Aminotransferase 80 U/L (7-40); Alkaline Phosphatase 79 U/L (46-116); Anion Gap 6 (5-15); Aspartate Aminotransferase 54 U/L (13-40); BUN/Creatinine Ratio 12.5 (10.0-20.0); Blood Urea Nitrogen 9 mg/dL (9-23); Calcium 9.3 mg/dL (8.5-10.1); Carbon Dioxide 24 mmol/L (20-30); Chloride 109 mmol/L (98-107); Glucose 92 mg/dL (74-106); Magnesium 1.9 mg/dL (1.6-2.6); Potassium 4.3 mmol/L (3.5-5.1); Sodium 139 mmol/L (136-145)
[2024-02-10 09:44] LABS: Bilirubin, Total 0.5 mg/dL (0.2-1.0); Total Protein 6.7 g/dL (5.7-8.2)
[2024-02-10] MEDS: ERTAPENEM SOD INJ 1 GM in SODIUM CHL 0.9% 50 ML IV SCH (16:26)
[2024-02-10] MEDS: FLUTICASONE PROP NASAL SPR 0.05 % (50MCG) 16GM EACHNOSTRI SCH (16:26)
[2024-02-10] MEDS ORDERED: diphenhdrAMINE HCL 25 MG CAP PO PRN (17:45)
[2024-02-10] MEDS: LINEZOLID 600MG TABLET PO SCH (21:52)
[2024-02-10] MEDS: diphenhdrAMINE HCL 50 MG/1 ML VL IV PRN (21:53)
[2024-02-11] VITALS (8 sets, daily range): BP systolic 115–155; BP diastolic 66–85; PULSE 82–124; RESP 14–20; TEMP 97.4–98.1; O2SAT 94–97
[2024-02-11] MEDS: THROAT LOZENGES(CEPASTAT) MT PRN (03:44)
[2024-02-11 10:32] LABS: Basophils # (auto) 0 10 ^3/uL (0-0.2); Basophils % (auto) 1.2 % (0.0-2.0); Eosinophils # (auto) 0.1 10 ^3/uL (0-0.8); Hemoglobin 10.9 g/dL (12.2-16.2); Lymphocytes % (auto) 39.6 % (10.0-50.0); Mean Corpuscular Hemoglobin 35.2 pg (28.0-32.0); Mean Corpuscular Hgb Conc. 34.1 g/dL (32.0-36.0); Mean Corpuscular Volume 103.3 fL (80.0-100.0); Monocytes # (auto) 0.3 10 ^3/uL (0-1.3); Monocytes % (auto) 10.2 % (0.0-12.0); Neutrophils # (auto) 1.1 10 ^3/uL (1.6-8.6); Nucleated Red Blood Cells % 0.1 %; Red Blood Cells 3.09 10^6/uL (4.0-5.20); Red Cell Distribution Width 16.3 % (11.8-14.3); White Blood Cell 2.6 10^3/uL (4.4-10.8)
[2024-02-11 10:45] LABS: Alanine Aminotransferase 71 U/L (7-40); Albumin 4.3 g/dL (3.2-4.8); Alkaline Phosphatase 82 U/L (46-116); Anion Gap 4 (5-15); Aspartate Aminotransferase 50 U/L (13-40); BUN/Creatinine Ratio 14.5 (10.0-20.0); Bilirubin, Total 0.7 mg/dL (0.2-1.0); Blood Urea Nitrogen 11 mg/dL (9-23); CRP High Sensitivity 0.41 mg/dL (<1.0); Calcium 9.6 mg/dL (8.5-10.1); Carbon Dioxide 26 mmol/L (20-30); Chloride 109 mmol/L (98-107); Glucose 94 mg/dL (74-106); Potassium 3.8 mmol/L (3.5-5.1); Sodium 139 mmol/L (136-145); Total Protein 7.1 g/dL (5.7-8.2)
[2024-02-12] VITALS (11 sets, daily range): BP systolic 115–142; BP diastolic 43–78; PULSE 68–81; RESP 16–20; TEMP 97.8–98.3; O2SAT 94–100
[2024-02-12] MEDS: ALBUTEROL SULF 2.5 MG/0.5ML(0.5%) NEB SOLN NEB PRN (14:08)
[2024-02-12] MEDS: IPRATROPIUM BROM 0.5 MG/2.5ML INH SOL NEB PRN (14:08)
[2024-02-13] VITALS (8 sets, daily range): BP systolic 122–150; BP diastolic 52–72; PULSE 70–86; RESP 14–20; TEMP 97.9–98.3; O2SAT 93–98
[2024-02-13 09:58] LABS: White Blood Cell 2.6 10^3/uL (4.4-10.8)
[2024-02-13 09:59] LABS: Hemoglobin 10.7 g/dL (12.2-16.2); Mean Corpuscular Hemoglobin 34.2 pg (28.0-32.0); Mean Corpuscular Hgb Conc. 33.4 g/dL (32.0-36.0); Mean Corpuscular Volume 102.6 fL (80.0-100.0); Red Blood Cells 3.12 10^6/uL (4.0-5.20)
[2024-02-13 10:03] LABS: Basophils % (manual) 0 (0.0-2.0); Blast Cells 0; Metamyelocytes % 0; Myelocytes % 0; Promyelocytes % 0
[2024-02-13 10:14] LABS: Alanine Aminotransferase 61 U/L (7-40); Albumin 4.2 g/dL (3.2-4.8); Alkaline Phosphatase 81 U/L (46-116); Anion Gap 5 (5-15); Aspartate Aminotransferase 45 U/L (13-40); BUN/Creatinine Ratio 18.3 (10.0-20.0); Bilirubin, Total 0.4 mg/dL (0.2-1.0); Blood Urea Nitrogen 15 mg/dL (9-23); Calcium 9.1 mg/dL (8.5-10.1); Carbon Dioxide 26 mmol/L (20-30); Chloride 110 mmol/L (98-107); Glucose 91 mg/dL (74-106); Magnesium 2.1 mg/dL (1.6-2.6); Potassium 4.2 mmol/L (3.5-5.1); Sodium 141 mmol/L (136-145); Total Protein 6.7 g/dL (5.7-8.2)
[2024-02-13 10:15] LABS: Band Neutrophils % (manual) 1; Eosinophils % (manual) 6 (0-7); Lymphocytes % (manual) 61 (10.0-50.0); Monocytes % (manual) 9 (0-12); Reactive Lymphocytes 4
[2024-02-13 10:17] LABS: Anisocytosis Slight; Macrocytosis Slight; Ovalocytes FEW; Platelet Estimate Decreased; Tear Drop Cells FEW
[2024-02-14] VITALS (8 sets, daily range): BP systolic 120–136; BP diastolic 49–76; PULSE 76–86; RESP 15–20; TEMP 97.6–98.9; O2SAT 92–98
[2024-02-15 01:00] VITALS: BP 130/45; PULSE 73; RESP 19; TEMP 98.3; O2SAT 98
[2024-02-15 05:20] VITALS: BP 146/62; PULSE 74; RESP 18; O2SAT 97
[2024-02-15 08:50] VITALS: O2SAT 97
[2024-02-15] MEDS: LACTULOSE 20Gm/30ML SOLN PO ONE (09:45)
[2024-02-15 11:39] LABS: Basophils # (auto) 0 10 ^3/uL (0-0.2); Eosinophils # (auto) 0.1 10 ^3/uL (0-0.8); Hemoglobin 9.7 g/dL (12.2-16.2); Monocytes # (auto) 0.2 10 ^3/uL (0-1.3); Neutrophils # (auto) 0.7 10 ^3/uL (1.6-8.6); White Blood Cell 2.2 10^3/uL (4.4-10.8)
[2024-02-15 11:41] LABS: Eosinophils % (auto) 5.5 % (0.0-7.0); Hematocrit 29.3 % (36.0-46.0); Lymphocytes # (auto) 1.2 10 ^3/uL (0.4-5.4); Lymphocytes % (auto) 54.5 % (10.0-50.0); Mean Corpuscular Hemoglobin 34.4 pg (28.0-32.0); Mean Corpuscular Hgb Conc. 33.2 g/dL (32.0-36.0); Mean Corpuscular Volume 103.8 fL (80.0-100.0); Monocytes % (auto) 8.1 % (0.0-12.0); Neutrophils % (auto) 30.9 % (37.0-80.0); Nucleated Red Blood Cells % 0.5 %; Red Blood Cells 2.82 10^6/uL (4.0-5.20); Red Cell Distribution Width 16.1 % (11.8-14.3)
[2024-02-15 11:45] LABS: Chloride 108 mmol/L (98-107); Potassium 3.5 mmol/L (3.5-5.1); Sodium 138 mmol/L (136-145)
[2024-02-15 11:46] LABS: Anion Gap 3 (5-15); Carbon Dioxide 27 mmol/L (20-30)
[2024-02-15 11:51] LABS: BUN/Creatinine Ratio 15.3 (10.0-20.0); Blood Urea Nitrogen 11 mg/dL (9-23); Glucose 132 mg/dL (74-106)
[2024-02-15 11:52] LABS: Magnesium 1.9 mg/dL (1.6-2.6)
[2024-02-15 13:00] VITALS: BP 123/55; PULSE 54; RESP 16; TEMP 98; O2SAT 97
== END 2024-02-15 15:00 | DRG 690 ==
LOC: EDBD 21:31 → ER 21:31 → TELE 02-05 06:19 → TELE-E-ADS 02-05 13:47 → TELE-EAST 02-05 21:05 → EAST 02-12 11:38
PROVIDERS: ADMIT Internal Medicine Pulmonary Disease; ATTEND Internal Medicine Pulmonary Disease
PROC: 05HB33Z Insertion of Infusion Device into Right Basilic Vein, Percutaneous Approach (ICD-10-PCS; principal; 2024-02-07)
PROC: B54MZZA Ultrasonography of Right Upper Extremity Veins, Guidance (ICD-10-PCS; 2024-02-07)
DX: N30.01 Acute cystitis with hematuria (principal); F11.20 Opioid dependence, uncomplicated; I50.32 Chronic diastolic (congestive) heart failure; Z16.12 Extended spectrum beta lactamase (ESBL) resistance; I11.0 Hypertensive heart disease with heart failure; D69.6 Thrombocytopenia, unspecified; R26.81 Unsteadiness on feet; G89.29 Other chronic pain; D53.9 Nutritional anemia, unspecified; D72.819 Decreased white blood cell count, unspecified; E78.00 Pure hypercholesterolemia, unspecified; N20.0 Calculus of kidney; I25.10 Atherosclerotic heart disease of native coronary artery without angina pectoris; R74.01 Elevation of levels of liver transaminase levels; B96.1 Klebsiella pneumoniae [K. pneumoniae] as the cause of diseases classified elsewhere; Z95.1 Presence of aortocoronary bypass graft; Z88.8 Allergy status to other drugs, medicaments and biological substances; Z88.6 Allergy status to analgesic agent; Z88.3 Allergy status to other anti-infective agents; Z91.041 Radiographic dye allergy status; Z90.49 Acquired absence of other specified parts of digestive tract; Z90.710 Acquired absence of both cervix and uterus; Z82.49 Family history of ischemic heart disease and other diseases of the circulatory system; Z82.3 Family history of stroke; Z80.0 Family history of malignant neoplasm of digestive organs; Z84.1 Family history of disorders of kidney and ureter; Z79.01 Long term (current) use of anticoagulants; Z86.718 Personal history of other venous thrombosis and embolism; Z79.82 Long term (current) use of aspirin; Z53.20 Procedure and treatment not carried out because of patient's decision for unspecified reasons
CPT/HCPCS: 36415; 70450; 73030; 73560; 74018; 74176; 76705; 80048; 80053; 80061; 81001; 82533; 82607; 82728; 82746; 83036; 83540; 83550; 83605; 83735; 83880; 84443; 84484; 85007; 85025; 85027; 85048; 85610; 85652; 86141; 86592; 87045; 87081; 87086; 87088; 87186; 87427; 93886; 94640; 95819; 97110; 97116; 97163; 97530; G0378; J1335

== ENCOUNTER 2024-06-09 12:32 | Inpatient (IN) | payer MEDICARE, MEDICAID ==
[~2024-06-09] VITALS: Ht 157.5 cm; Wt 84.0 kg
[~2024-06-09 12:32] MED LIST changes: -ASPI1TAB20 PO; +ATOR-47 PO; -ATOR40TA52 PO; -BENA10TA16 GT; -CIPR-173 PO; -CLOP75TA70 PO; -FLUT50SP13; -FURO20TA3 PO; -ISOS1TAB29 PO; -LEVO750T40 PO; +METH-928 PO; -MULTCAP45 PO; -OXY5T PO; -OXYC15TA PO; +POTA-180 PO; -POTA-215 PO; -POTA-36 PO; -SACC250C PO; +TAMS0.4C39 PO
[2024-06-09 14:14] LABS: Chloride 107 mmol/L (98-107); Potassium 3.8 mmol/L (3.5-5.1); Sodium 141 mmol/L (136-145)
[2024-06-09 14:15] LABS: Anion Gap 7 (5-15); Carbon Dioxide 27 mmol/L (20-31)
[2024-06-09 14:16] LABS: Calcium 9.7 mg/dL (8.7-10.4); Hematocrit 30.2 % (36.0-46.0); Hemoglobin 9.7 g/dL (12.2-16.2); Mean Corpuscular Hgb Conc. 32.2 g/dL (32.0-36.0); Mean Corpuscular Volume 111.6 fL (80.0-100.0); Platelet Count (auto) 85 10^3/uL (140-450); Red Cell Distribution Width 17.9 % (11.8-14.3); White Blood Cell 2.2 10^3/uL (4.4-10.8)
[2024-06-09 14:20] LABS: BUN/Creatinine Ratio 11.7 (10.0-20.0); Basophils % (manual) 0 (0.0-2.0); Blast Cells 0; Blood Urea Nitrogen 9 mg/dL (9-23); Eosinophils % (manual) 0 (0-7); Glucose 88 mg/dL (74-106); Metamyelocytes % 0; Myelocytes % 0; Promyelocytes % 0; Reactive Lymphocytes 0
[2024-06-09 14:29] LABS: Band Neutrophils % (manual) 1; Lymphocytes % (manual) 66 (10.0-50.0); Monocytes % (manual) 2 (0-12)
[2024-06-09 14:30] LABS: Platelet Estimate Decreased
[2024-06-09] MEDS: MAGIC MOUTHWASH 55 ML SUSP MT ONE (15:00)
[2024-06-09] MEDS: ONDANSETRON HCL 4 MG/2 ML VIAL IV ONE (18:15)
[2024-06-09] MEDS: ASPirin 81 mg TAB PO ONE (18:15)
[2024-06-09 18:29] LABS: Urine Bacteria None Seen /hpf (None Seen)
[2024-06-09 18:42] LABS: Urine Blood Negative /uL (Negative); Urine Clarity Clear (Clear); Urine Color Dark-Brown (Yellow); Urine Mucus FEW (None Seen); Urine Protein, UAD Negative (Negative); Urine Specific Gravity 1.017 (1.001-1.035); Urine Urobilinogen Normal (Negative); Urine WBC 4 /hpf (0 - 5)
[2024-06-09 20:00] VITALS: PULSE 85; RESP 20; O2SAT 93
[2024-06-09] MEDS: oxyCODONE ER 10 MG TAB PO ONE (20:12)
[2024-06-10] MEDS: diphenhdrAMINE HCL 50 MG/1 ML VL IV ONE ×2 (00:45→17:55)
[2024-06-10] MEDS: oxyCODONE ER 10 MG TAB PO ONE (02:25)
[2024-06-10] MEDS ORDERED: FUROSEMIDE 20 MG/2 ML VIAL IV ONE (03:00)
[2024-06-10] MEDS: LISINOPRIL 5 MG TAB PO ONE (03:44)
[2024-06-10 04:51] VITALS: BP 142/41; PULSE 66; RESP 20; TEMP 97.9; O2SAT 97
[2024-06-10 05:00] VITALS: BP 117/53; PULSE 66; RESP 20; TEMP 97.9; O2SAT 97
[2024-06-10] MEDS ORDERED: OXY5T PO (05:16)
[2024-06-10] MEDS: cefTRIAXone 1GM/50ML D5W 50 ML IV SCH (07:11)
[2024-06-10] MEDS: BUMETANIDE 2.5mg/10ml (0.25 mg/ml) INJ IV ONE (07:11)
[2024-06-10 08:00] VITALS: PULSE 78; RESP 17; O2SAT 94
[2024-06-10 08:19] VITALS: BP 122/50; PULSE 78; RESP 17; TEMP 97.9; O2SAT 94
[2024-06-10] MEDS: MORPHINE SULFATE INJ 2 MG/ml SYRG IV PRN (09:45)
[2024-06-10 10:08] LABS: INR 1.09 (0.9-1.15); Partial Thromboplastin Time 20.2 SEC (24.5-34.5); Prothrombin Time 11.5 sec (9.3-11.8)
[2024-06-10 10:12] LABS: Alanine Aminotransferase 40 U/L (7-40); Albumin 3.8 g/dL (3.2-4.8); Alkaline Phosphatase 73 U/L (46-116); Anion Gap 7 (5-15); Aspartate Aminotransferase 49 U/L (13-40); BUN/Creatinine Ratio 12.9 (10.0-20.0); Blood Urea Nitrogen 11 mg/dL (9-23); Calcium 9.3 mg/dL (8.7-10.4); Carbon Dioxide 27 mmol/L (20-31); Chloride 110 mmol/L (98-107); Glucose 113 mg/dL (74-106); Potassium 3.8 mmol/L (3.5-5.1); Sodium 144 mmol/L (136-145)
[2024-06-10 10:13] LABS: Bilirubin, Direct 0.2 mg/dL (<0.3); Bilirubin, Total 0.6 mg/dL (0.2-1.0); Total Protein 6.2 g/dL (5.7-8.2)
[2024-06-10] MEDS ORDERED: oxyCODONE HCL 5MG TAB PO PRN (11:15)
[2024-06-10] MEDS: oxyCODONE HCL 5MG TAB PO PRN (12:47)
[2024-06-10 13:27] VITALS: BP 123/42; PULSE 71; RESP 16; TEMP 98; O2SAT 96
[2024-06-10] MEDS: ASPirin 81 mg TAB PO ONE (17:55)
[2024-06-10 20:00] VITALS: RESP 17; O2SAT 98
[2024-06-10] MEDS ORDERED: PHEN-1045 PO (23:37)
[2024-06-11] VITALS (7 sets, daily range): BP systolic 112–135; BP diastolic 46–68; PULSE 65–82; RESP 16–19; TEMP 98.5–98.6; O2SAT 94–97
[2024-06-11 06:17] LABS: Hemoglobin 9.4 g/dL (12.2-16.2); Mean Corpuscular Hemoglobin 36.9 pg (28.0-32.0)
[2024-06-11 06:20] LABS: Mean Corpuscular Hgb Conc. 33.5 g/dL (32.0-36.0); Mean Corpuscular Volume 110.3 fL (80.0-100.0); Platelet Count (auto) 73 10^3/uL (140-450); Red Blood Cells 2.54 10^6/uL (4.0-5.20); Red Cell Distribution Width 17.5 % (11.8-14.3)
[2024-06-11] MEDS: diphenhdrAMINE HCL 50 MG/1 ML VL IV PRN (06:36)
[2024-06-11 06:40] LABS: Chloride 108 mmol/L (98-107); Potassium 3.7 mmol/L (3.5-5.1); Sodium 141 mmol/L (136-145)
[2024-06-11 06:41] LABS: Anion Gap 5 (5-15); Carbon Dioxide 28 mmol/L (20-31)
[2024-06-11 06:43] LABS: White Blood Cell 1.8 10^3/uL (4.4-10.8)
[2024-06-11 06:45] LABS: Basophils % (manual) 0 (0.0-2.0); Blast Cells 0; Myelocytes % 0; Promyelocytes % 0; Reactive Lymphocytes 0
[2024-06-11 06:47] LABS: BUN/Creatinine Ratio 23.3 (10.0-20.0); Blood Urea Nitrogen 17 mg/dL (9-23); Glucose 121 mg/dL (74-106)
[2024-06-11 07:39] LABS: Band Neutrophils % (manual) 6; Eosinophils % (manual) 5 (0-7); Large Platelets FEW; Lymphocytes % (manual) 69 (10.0-50.0); Macrocytosis Marked; Metamyelocytes % 1; Monocytes % (manual) 2 (0-12); Platelet Estimate Decrea
[2024-06-11] MEDS: ASPirin 81 mg TAB PO SCH (09:08)
[2024-06-11] MEDS: LISINOPRIL 5 MG TAB PO SCH (09:14)
[2024-06-11] MEDS ORDERED: THROAT LOZENGES(CEPASTAT) MT PRN (13:00)
[2024-06-11] MEDS: oxyCODONE HCL 5MG TAB PO PRN (14:14)
[2024-06-12] VITALS (7 sets, daily range): BP systolic 104–132; BP diastolic 47–76; PULSE 77–88; RESP 16–18; TEMP 97.7–98.7; O2SAT 92–98
[2024-06-12 07:05] LABS: Chloride 110 mmol/L (98-107); Potassium 3.9 mmol/L (3.5-5.1); Sodium 143 mmol/L (136-145)
[2024-06-12 07:06] LABS: Anion Gap 6 (5-15); Carbon Dioxide 27 mmol/L (20-31); Hematocrit 31.3 % (36.0-46.0); Hemoglobin 9.7 g/dL (12.2-16.2); Mean Corpuscular Hemoglobin 35.9 pg (28.0-32.0); Mean Corpuscular Hgb Conc. 30.8 g/dL (32.0-36.0); Mean Corpuscular Volume 116.3 fL (80.0-100.0); Platelet Count (auto) 70 10^3/uL (140-450); Red Blood Cells 2.69 10^6/uL (4.0-5.20); Red Cell Distribution Width 18.7 % (11.8-14.3)
[2024-06-12 07:07] LABS: Calcium 9.5 mg/dL (8.7-10.4)
[2024-06-12 07:10] LABS: White Blood Cell 1.7 10^3/uL (4.4-10.8)
[2024-06-12 07:11] LABS: BUN/Creatinine Ratio 17.7 (10.0-20.0); Blood Urea Nitrogen 14 mg/dL (9-23); Glucose 92 mg/dL (74-106)
[2024-06-12 07:12] LABS: Band Neutrophils % (manual) 0; Basophils % (manual) 0 (0.0-2.0); Blast Cells 0; Metamyelocytes % 0; Monocytes % (manual) 0 (0-12); Myelocytes % 0; Promyelocytes % 0; Reactive Lymphocytes 0
[2024-06-12] MEDS: LIDOCAINE 2%HCL (LOCAL ANESTH.) INJ 10ml MDV ONE (09:58)
[2024-06-12] MEDS: MIDAZOLAM HCL 2MG/2ML 2ml VIAL (1mg/ml) IV ONE (10:00)
[2024-06-12] MEDS: fentaNYL CITRATE 100 MCG/2 ML VL IV ONE (10:00)
[2024-06-12 10:04] LABS: Eosinophils % (manual) 2 (0-7); Lymphocytes % (manual) 69 (10.0-50.0); Platelet Estimate Decreased
[2024-06-12] MEDS: PHENAZOPYRIDINE HCL 100 MG TAB PO ONE (15:05)
[2024-06-12] MEDS ORDERED: METH-928 PO (17:07)
[2024-06-13] VITALS (7 sets, daily range): BP systolic 100–134; BP diastolic 35–71; PULSE 73–83; RESP 16–18; TEMP 97.7–98.6; O2SAT 92–98
[2024-06-13 05:59] LABS: Basophils # (auto) 0 10 ^3/uL (0-0.2); Basophils % (auto) 1.7 % (0.0-2.0); Eosinophils # (auto) 0.1 10 ^3/uL (0-0.8); Eosinophils % (auto) 3.1 % (0.0-7.0); Hematocrit 29.6 % (36.0-46.0); Hemoglobin 9.6 g/dL (12.2-16.2); Lymphocytes # (auto) 1.2 10 ^3/uL (0.4-5.4); Lymphocytes % (auto) 52.3 % (10.0-50.0); Mean Corpuscular Hemoglobin 36.9 pg (28.0-32.0); Mean Corpuscular Hgb Conc. 32.5 g/dL (32.0-36.0); Mean Corpuscular Volume 113.6 fL (80.0-100.0); Monocytes # (auto) 0.2 10 ^3/uL (0-1.3); Monocytes % (auto) 9.1 % (0.0-12.0); Neutrophils # (auto) 0.8 10 ^3/uL (1.6-8.6); Neutrophils % (auto) 33.8 % (37.0-80.0); Nucleated Red Blood Cells % 0.6 %; Platelet Count (auto) 75 10^3/uL (140-450); Red Blood Cells 2.61 10^6/uL (4.0-5.20); Red Cell Distribution Width 17.4 % (11.8-14.3); White Blood Cell 2.3 10^3/uL (4.4-10.8)
[2024-06-13 06:07] LABS: Thyroxine (T4) 8.4 ug/dL (4.5-12.0)
[2024-06-13 06:24] LABS: Anion Gap 7 (5-15); Carbon Dioxide 26 mmol/L (20-31); Chloride 107 mmol/L (98-107); Potassium 3.9 mmol/L (3.5-5.1); Sodium 140 mmol/L (136-145)
[2024-06-13 06:26] LABS: Calcium 9.4 mg/dL (8.7-10.4)
[2024-06-13 06:27] LABS: Macrocytosis Moderate; Platelet Estimate Decreased
[2024-06-13 06:28] LABS: Tear Drop Cells FEW
[2024-06-13 06:30] LABS: Blood Urea Nitrogen 15 mg/dL (9-23); Glucose 83 mg/dL (74-106)
[2024-06-13 06:31] LABS: Ovalocytes MODE
[2024-06-13 08:06] LABS: Rheumatoid Arthritis Factor <10.0 IU/mL (<14.0)
[2024-06-13] MEDS: PHENAZOPYRIDINE HCL 100 MG TAB PO ONE (16:04)
[2024-06-13 16:06] LABS: Anti-Nuclear Antibody Direct Positive (Negative)
[2024-06-13 17:06] LABS: Anti-dsDNA Antibody <1 IU/mL (0-9); RNP Antibody 1.6 AI (0.0-0.9); Sjogren's Anti-SS-A Antibody <0.2 AI (0.0-0.9); Sjogren's Anti-SS-B Antibody <0.2 AI (0.0-0.9); Smith Antibody <0.2 AI (0.0-0.9)
[2024-06-14 05:08] LABS: Albumin 3.2 g/dL (2.9-4.4); Alpha-1-Globulin 0.2 g/dL (0.0-0.4); Alpha-2-Globulin 0.6 g/dL (0.4-1.0); Gamma Globulin 0.9 g/dL (0.4-1.8); Globulin Total 2.9 g/dL (2.2-3.9); Protein Total Serum 6.1 g/dL (6.0-8.5)
[2024-06-14] MEDS: ONDANSETRON ODT 4 MG TAB PO ONE (08:29)
[2024-06-14 09:00] VITALS: BP 142/59; PULSE 85; RESP 18; TEMP 98.3; O2SAT 96
[2024-06-14] MEDS: oxyCODONE ER 10 MG TAB PO SCH (09:52)
[2024-06-14 10:20] LABS: Mean Corpuscular Hemoglobin 36.6 pg (28.0-32.0); Red Cell Distribution Width 17.6 % (11.8-14.3)
[2024-06-14 10:22] LABS: Hematocrit 28.4 % (36.0-46.0); Hemoglobin 9.3 g/dL (12.2-16.2); Mean Corpuscular Hgb Conc. 32.9 g/dL (32.0-36.0); Mean Corpuscular Volume 111.5 fL (80.0-100.0); Platelet Count (auto) 69 10^3/uL (140-450); Red Blood Cells 2.55 10^6/uL (4.0-5.20); White Blood Cell 2.1 10^3/uL (4.4-10.8)
[2024-06-14 10:28] LABS: Band Neutrophils % (manual) 0; Basophils % (manual) 0 (0.0-2.0); Blast Cells 0; Metamyelocytes % 0; Myelocytes % 0; Promyelocytes % 0; Reactive Lymphocytes 0
[2024-06-14 12:14] LABS: Eosinophils % (manual) 2 (0-7); Lymphocytes % (manual) 60 (10.0-50.0); Monocytes % (manual) 6 (0-12); Platelet Estimate Decreased
[2024-06-14 13:00] VITALS: BP 134/71; PULSE 73; RESP 18; TEMP 98.1; O2SAT 98
[2024-06-14] MEDS: CYANOCOBALAMIN (B-12) 1000 MCG/1 ML VIAL IM ONE (13:26)
[2024-06-14] MEDS: ERGOCALCIFEROL 50,000 UNIT(1.25MG) CAP PO SCH (13:26)
[2024-06-14 13:37] VITALS: BP 142/59; TEMP 36.7
[2024-06-14] MEDS ORDERED: oxyCODONE ER 10 MG TAB PO SCH ×2 (14:45→18:00)
[2024-06-14] MEDS ORDERED: oxyCODONE HCL 5MG TAB PO SCH (14:45)
[2024-06-14] MEDS: oxyCODONE HCL 5MG TAB PO SCH (14:51)
[2024-06-14 16:52] VITALS: BP 110/45; PULSE 18; RESP 97; TEMP 97.9; O2SAT 97
[2024-06-14] MEDS: diphenhdrAMINE HCL 25 MG CAP PO PRN (18:37)
[2024-06-14 20:00] VITALS: PULSE 72; RESP 18; O2SAT 96
[2024-06-14 21:00] VITALS: BP 94/37; PULSE 72; RESP 19; TEMP 98.4; O2SAT 96
[2024-06-14] MEDS: CEPHALEXIN 250 MG CAP PO SCH (22:14)
[2024-06-15 05:00] VITALS: BP 149/50; PULSE 89; RESP 20; TEMP 98.9; O2SAT 93
[2024-06-15 08:30] VITALS: PULSE 79; RESP 18
[2024-06-15 08:43] VITALS: BP 142/67; PULSE 79; RESP 18; TEMP 98.3; O2SAT 91
[2024-06-15] MEDS: CYANOCOBALAMIN 500 MCG TAB PO SCH (09:36)
[2024-06-15] MEDS: oxyCODONE HCL 5MG TAB PO PRN (09:55)
[2024-06-15 13:00] VITALS: BP 126/44; PULSE 75; RESP 17; TEMP 98.2; O2SAT 96
[2024-06-15 17:00] VITALS: BP 114/42; PULSE 74; RESP 17; TEMP 98.1; O2SAT 94
[2024-06-15 21:00] VITALS: BP 128/52; PULSE 75; RESP 18; TEMP 98; O2SAT 94
[2024-06-16 01:00] VITALS: BP 113/46; PULSE 76; RESP 19; TEMP 98.2; O2SAT 100
[2024-06-16 05:00] VITALS: BP 118/64; PULSE 72; RESP 20; TEMP 98.1; O2SAT 98
[2024-06-16 09:11] VITALS: BP 117/44; PULSE 77; RESP 18; TEMP 98.5; O2SAT 97
[2024-06-16] MEDS ORDERED: DIPH25CA51 PO (11:03)
[2024-06-16] MEDS ORDERED: CEPH250C PO (11:03)
[2024-06-16] MEDS ORDERED: ERGO1CAP23 PO (11:03)
[2024-06-16] MEDS ORDERED: CYAN500T3 PO (11:03)
== END 2024-06-16 12:31 | disposition home or self-care (01) | DRG 291 ==
LOC: EDBD 12:32 → ER 12:32 → OVERFLOW 23:12 → EAST 23:12
PROVIDERS: ADMIT Internal Medicine; ATTEND Internal Medicine
PROC: 05HD33Z Insertion of Infusion Device into Right Cephalic Vein, Percutaneous Approach (ICD-10-PCS; 2024-06-12)
PROC: B54MZZA Ultrasonography of Right Upper Extremity Veins, Guidance (ICD-10-PCS; 2024-06-12)
PROC: 07DR3ZX Extraction of Iliac Bone Marrow, Percutaneous Approach, Diagnostic (ICD-10-PCS; principal; 2024-06-13)
DX: I11.0 Hypertensive heart disease with heart failure (principal); I50.33 Acute on chronic diastolic (congestive) heart failure; N39.0 Urinary tract infection, site not specified; D61.9 Aplastic anemia, unspecified; N28.1 Cyst of kidney, acquired; M71.22 Synovial cyst of popliteal space [Baker], left knee; K76.89 Other specified diseases of liver; I25.10 Atherosclerotic heart disease of native coronary artery without angina pectoris; E53.8 Deficiency of other specified B group vitamins; D53.9 Nutritional anemia, unspecified; G89.4 Chronic pain syndrome; D72.820 Lymphocytosis (symptomatic); N20.0 Calculus of kidney; I48.91 Unspecified atrial fibrillation; Z95.1 Presence of aortocoronary bypass graft; Z90.710 Acquired absence of both cervix and uterus; Z86.73 Personal history of transient ischemic attack (TIA), and cerebral infarction without residual deficits; Z82.49 Family history of ischemic heart disease and other diseases of the circulatory system; Z82.3 Family history of stroke; Z80.0 Family history of malignant neoplasm of digestive organs
CPT/HCPCS: 10005; 36415; 71046; 72192; 74176; 77012; 80048; 80076; 81001; 82306; 82607; 82746; 83615; 83880; 84155; 84165; 84436; 84443; 84484; 85007; 85025; 85027; 85610; 85730; 86038; 86431; 86880; 87086; 93005; 93971; 97116; 97163; 97530; G0378; J2003; J2250; J2405; Q0162

== ENCOUNTER 2024-09-06 21:25 | Emergency (ER) | payer MEDICAID, MEDICARE ==
[~2024-09-06] VITALS: Ht 157.5 cm; Wt 67.3 kg
[~2024-09-06 21:25] MED LIST changes: -ATOR-47 PO; +CEPH250C PO; +CYAN500T3 PO; +DIPH25CA51 PO; +ERGO1CAP23 PO; +LISI-275 PO; -OXY20CRT PO; +OXY5T PO; +PHEN-1045 PO; +TAMS-35 PO
--- NOTE | 2024-09-06 22:24 | ED.PDOC ---
General HPI Comments 79 year old female brought in by EMS presents to the ED with a chief complaint of hematuria onset today. Patient states she began experiencing hematuria, dysuria with burning sensation as well as RT flank pain, nausea, vomiting. Patient also states she recently saw PCP and was told she had a possible DVT on RT leg. Past medical history of CHF and states she is not on Diuretics due to her being allergic to the medication. Denies headache, chest pain, shortness of breath, dizziness, blurry vision. No other symptoms or modifying factors present at this time. Chief Complaint: Flank Pain Time Seen by MD: 21:58 Reviewed notes: Medications, Allergies Allergies: Coded Allergies: Acetaminophen (Verified Allergy, Unknown, 05/07/24) Enoxaparin (Verified Allergy, Unknown, 05/09/24) NSAIDs (Verified Allergy, Unknown, 05/07/24) Home Meds Active Scripts Phenazopyridine HCl (Phenazopyridine Hydrochol) 200 Mg Tab, 200 MG PO TID PRN, #9 TAB prn urinary pain Prov:MAVIS WYMAN MD 09/07/24 Cephalexin Monohydrate (Cephalexin) 500 Mg Cap, 1 CAP PO QID for 10 Days, #40 CAP Prov:MAVIS WYMAN MD 09/07/24 Tamsulosin Hcl (Flomax) 0.4 Mg Cap, 0.4 MG PO QPM for 30 Days, #30 CAP Prov:THIAGO MOSCOSO RESIDENT 05/10/24 Lisinopril (Lisinopril) 5 Mg Tab, 10 MG PO DAILY for 30 Days, #60 TAB Prov:THIAGO MOSCOSO 05/10/24 Ergocalciferol (VITAMIN D 55317 UNIT) 50,000 [place], [address] UNIT PO Q7D for 30 Days, #10 CAP Prov:THIAGO MOSCOSO 05/10/24 Cyanocobalamin (Gnp Vitamin B12) 500 Mcg Tab, 500 MCG PO DAILY for 30 Days, #30 TAB Prov:THIAGO MOSCOSO 05/10/24 Information Source: Patient, Emergency Med Personnel Mode of Arrival: EMS Severity: Moderate Timing: Hours Duration: Since onset Prehospital treatment: None Onset: Spontaneous Symptoms: Dysuria, Hematuria History of: None Location: (R) Flank associated signs and symptoms: Nausea, Vomiting, Flank Pain, Dysuria, Hematuria Past Medical History PAST MEDICAL HISTORY: CHF Surgical History: Hernia Repair [employer]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 Family History Family History: Reviewed,noncontributory to illness Social History Smoker: Non-Smoker Alcohol: Denies ETOH Use Drugs: Denies Drug Use Lives In: Home Constitutional: denies: chills, diaphoresis, fatigue, fever, malaise, sweats, weakness, others EENTM: denies: blurred vision, double vision, ear bleeding, ear discharge, ear drainage, ear pain, ear ringing, eye pain, eye redness, hearing loss, mouth pain, mouth swelling, nasal discharge, nose bleeding, nose congestion, nose pain, photophobia, tearing, throat pain, throat swelling, voice changes, others Respiratory: denies: cough, hemoptysis, orthopnea, SOB at rest, shortness of breath, SOB with excertion, stridor, wheezing, others Cardiovascular: denies: chest pain, dizzy spells, diaphoresis, Dyspnea on exertion, edema, irregular heart beat, left arm pain, lightheadedness, palpitations, PND, syncope, others Gastrointestinal: reports: nausea, vomiting; denies: abdomen distended, abdominal pain, blood streaked bowels, constipated, diarrhea, dysphagia, difficulty swallowing, hematemesis, melena, poor appetite, poor fluid intake, rectal bleeding, rectal pain, others Genitourinary: reports: burning, dysuria, flank pain (RT), hematuria; denies: abnormal vagina bleeding, dyspareunia, frequency, incontinence, pain, , vagina discharge, urgency, others Neurological: denies: dizziness, fainting, headache, left sided numbness, left sided weakness, numbness, paresthesia, pre-existing deficit, right sided numbness, right sided weakness, seizure, speech problems, tingling, tremors, weakness, others Musculoskeletal: reports: others (RT leg swelling); denies: back pain, gout, joint pain, joint swelling, muscle pain, muscle stiffness, neck pain Integumetry: denies: bruises, change in color, change in hair/nails, dryness, laceration, lesions, lumps, rash, wounds, others Allergic/Immunocompromised: denies: Difficulty Healing, Frequent Infections, Hives, Itching, others Hematologic/Lymphatic: denies: anemia, blood clots, easy bleeding, easy bruising, swollen glands, others Endocrine: denies: excessive hunger, excessive sweating, excessive thirst, excessive urination, flushing, intolerance to cold, intolerance to heat, unexplained weight gain, unexplained weight loss, others Psychiatric: denies: anxiety, bipolar disorder, depression, hopeless, panic disorder, schizophrenia, sleepless, suicidal, others All Other Systems: Reviewed and Negative Physical Exam General Appearance: No Apparent Distress HEENT: Other (Pupils symmetric. Moist mucous membranes.) Neck: Full Range of Motion, Normal Inspection Respiratory: Lungs Clear, No Accessory Muscle Use, No Respiratory Distress, Normal Breath Sounds Cardiovascular: No JVD, Regular Rate/Rhythm Breast Exam: Deferred Gastrointestinal: Soft, Suprapubic, Tenderness, Other (Right flank tenderness to palpation) Genitalia: Deferred Pelvic: Deferred Rectal: Deferred Extremities: Leg edema, Normal range of motion, Non-tender, Pedal edema Neurologic: Alert (Oriented x4), Normal Affect, Normal Mood, Other (Moves all extremities with adequate strength and tone. No gross focal deficit.) Cerebellar Function: NOT DONE Reflexes: NOT DONE Skin: Dry, Normal Color, Warm Lymphatic: NOT DONE Was a procedure done? Was a procedure done?: No Differential Diagnosis Kidney stone (Female): Pyelonephritis, Renal failure, Strain, Urinary obstruction, Urolithiasis Urinary Problem (Male): Urinary Retention, UTI Urinary Problem (Female): Appendicitis, PID, Vaginitis X-Ray, Labs, Meds, VS Vital Signs Date Time Temp Pulse Resp B/P (MAP) Pulse Ox O2 Delivery O2 Flow Rate FiO2 09/07/24 03:00 76 22 130/44 09/07/24 03:00 76 22 130/44 (72) 96 09/07/24 02:30 90 22 135/53 (80) 95 09/07/24 02:30 90 22 135/53 09/07/24 00:43 76 21 128/52 09/07/24 00:19 90 23 125/50 09/07/24 00:00 90 23 125/50 (75) 94 09/07/24 00:00 Room Air* 0 21 09/06/24 21:36 79 09/06/24 21:30 98.5 80 18 138/76 (96) 96 Lab Test 09/06/24 23:20 09/06/24 22:30 Range/Units Troponin I High Sensitivity 4 5 </=34 ng/L White Blood Count 2.5 L 4.4-10.8 10^3/uL Red Blood Count 2.89 L 4.0-5.20 10^6/uL Hemoglobin 10.4 L 12.2-16.2 g/dL Hematocrit 31.4 L 36.0-46.0 % Mean Corpuscular Volume 108.5 H 80.0-100.0 fL Mean Corpuscular Hemoglobin 35.9 H 28.0-32.0 pg Mean Corpuscular Hemoglobin Concent 33.1 32.0-36.0 g/dL Red Cell Distribution Width 16.5 H 11.8-14.3 % Platelet Count 85 L 140-450 10^3/uL Mean Platelet Volume 7.7 6.9-10.8 fL Neutrophils (%) (Auto) 46.5 37.0-80.0 % Lymphocytes (%) (Auto) 39.5 10.0-50.0 % Monocytes (%) (Auto) 11.0 0.0-12.0 % Eosinophils (%) (Auto) 1.9 0.0-7.0 % Basophils (%) (Auto) 1.1 0.0-2.0 % Neutrophils # (Auto) 1.1 L 1.6-8.6 10 ^3/uL Lymphocytes # (Auto) 1.0 0.4-5.4 10 ^3/uL Monocytes # (Auto) 0.3 0-1.3 10 ^3/uL Eosinophils # (Auto) 0 0-0.8 10 ^3/uL Basophils # (Auto) 0 0-0.2 10 ^3/uL Nucleated Red Blood Cells 0.6 % Sodium Level 143 136-145 mmol/L Potassium Level 3.9 3.5-5.1 mmol/L Chloride Level 107 98-107 mmol/L Carbon Dioxide Level 30 20-31 mmol/L Anion Gap 6 5-15 Blood Urea Nitrogen 12 9-23 mg/dL Creatinine 0.71 0.550-1.02 mg/dL Glomerular Filtration Rate Calc 86 >90 mL/min BUN/Creatinine Ratio 16.9 10.0-20.0 Serum Glucose 105 74-106 mg/dL Calcium Level 9.6 8.7-10.4 mg/dL Total Bilirubin 0.8 0.2-1.0 mg/dL Aspartate Amino Transferase (AST) 78 H 13-40 U/L Alanine Aminotransferase (ALT) 57 H 7-40 U/L Alkaline Phosphatase 85 46-116 U/L B-Type Natriuretic Peptide 129.41 0-100 pg/mL Total Protein 6.5 5.7-8.2 g/dL Albumin 4.2 3.2-4.8 g/dL Current Medications Medications (Trade) Dose Ordered Sig/Nay Route Start Time Stop Time Status Last Admin Ceftriaxone Sodium 50 ml @ 100 mls/hr ONCE ONCE IV 09/06/24 22:30 09/06/24 22:59 DC 09/06/24 23:56 Morphine Sulfate 4 mg ONCE ONCE IV 09/06/24 22:30 09/07/24 02:24 DC 09/07/24 00:19 Ondansetron HCl (Zofran) 4 mg ONCE ONCE IV 09/06/24 22:30 09/06/24 22:31 DC 09/07/24 00:17 Hydromorphone HCl (Dilaudid Injection) 0.5 mg ONCE ONCE IV 09/07/24 02:30 09/07/24 02:31 DC 09/07/24 02:30 [place] [id number] Ph: [phone] DIAGNOSTIC IMAGING Diagnostic Imaging Report : [id number] Signed PATIENT: STEPHANIE RIVERAIAACCT: [id number] UNIT: [id number] : 1945 LOC: ER ROOM / BED: / AGE / SEX: 79 / F ADM STATUS: REG ER SERVICE 15 ORDERING PHYSICIAN: MAVIS WYMAN MD PROCEDURE(s): CXRP - CHEST PORTABLE REASON: cough ORDER NUMBER(s): [id number], ACCESSION NUMBER(s): [id number] Examination: CXRP Clinical Indication: Cough. Comparison: None. Technique: Frontal radiograph of the chest was obtained. Findings: Haziness is seen in bilateral mid and lower zones likely due to overlying soft tissue shadow Rest of the Lungs are clear and well expanded with no pulmonary infiltrate or pleural effusion. There is no pneumothorax. Mild cardiomegaly. No acute osseous abnormality is seen. Sternotomy wires are seen. Surgical hardware is seen in the cervical spine Impression: 1. Haziness is seen in bilateral mid and lower zones likely due to overlying soft tissue shadow. 2. Mild cardiomegaly. 3. Sternotomy wires are seen. 4. Surgical hardware is seen in the cervical spine. Electronically Signed 09/07/2024 03:07 Barrett Segura ATED BY: YAYO ROGERS MD DICTATED DATE/TIME: 09/07/24306 SIGNED BY: YAYO ROGERS MD SIGNED DATE/TIME: 09/07/24306 CC: [place] [id number] Ph: [phone] DIAGNOSTIC IMAGING Diagnostic Imaging Report : [id number] Signed PATIENT: OBDULIO RIVERACCT: [id number] UNIT: [id number] : 1945 LOC: ER ROOM / BED: / AGE / SEX: 79 / F ADM STATUS: REG ER SERVICE 15 ORDERING PHYSICIAN: MAVIS WYMAN MD PROCEDURE(s): ABPL - CT AB PEL WO CON-NO ORAL OR IV REASON: R flank pain dysuria hematuria ORDER NUMBER(s): [id number], ACCESSION NUMBER(s): [id number] Examination: ABPL CLINICAL INDICATION: R flank pain dysuria hematuria COMPARISON: None. CONTRAST USED: None. TECHNIQUE: A plain CT study of the abdomen and pelvis is performed. The examination was performed with 5 mm thin slices. Multiplanar reconstructions were obtained. CT scan done according to ALARA (As Low As Reasonably Achievable). FINDINGS: CT ABDOMEN: Lung base: Subsegmental atelectasis is seen in lingula and left lower lobe. Unenhanced Liver: The liver is normal in size. Hypodense cysts seen in liver, largest measuring 14 mm. These are likely benign and require no follow-up. There is no intrahepatic biliary radicle dilatation. Gallbladder: The gallbladder is normal and reveals no intrinsic abnormality. The common bile duct is not dilated. Unenhanced Pancreas: The pancreas is normal in size and shape. No focal lesion is seen within. The peripancreatic fat-planes are normal. Spleen: The spleen is normal in size and does not show any focal abnormality. Retroperitoneum: Both adrenal glands are normal in size and morphology in this unenhanced CT scan. There is no significant retroperitoneal lymphadenopathy. The kidneys are normal in size with no hydronephrosis. Non-obstructive bilateral renal calculi seen, largest measuring 9 mm in midpole of right kidney. Vessels: Non-aneurysmal ASVD is seen involving the aorta and its branches. IVC and the mesenteric vessels cannot be commented in this unenhanced CT scan. Small umbilical hernia is seen containing fat. Stomach and bowel: The bowel loops are unremarkable. There is no ascites. Skeletal system: Degenerative changes are seen involving the spine in the form of marginal osteophytes. CT PELVIS: Appendix: The appendix is not visualized. Colon: Scattered colonic diverticulosis is seen without diverticulitis. Bladder: The urinary bladder is unremarkable. Uterus and ovaries: Post hysterectomy status. No adnexal pathology. No abnormal fluid collection is seen. No pelvic lymphadenopathy is identified. IMPRESSION: 1. Scattered colonic diverticulosis is seen without diverticulitis. 2. Non-obstructive bilateral renal calculi seen, largest measuring 9 mm in midpole of right kidney. 3. No abdominal mass or adenopathy. 4. No ascites. 5. No free air or inflammatory changes. 6. No hydronephrosis. 7. Additional chronic and/or ancillary findings as detailed above. 8. Suggest clinical correlation and follow-up as clinically deemed necessary. Electronically Signed 09/07/2024 03:28 Barrett Segura ATED BY: YAYO ROGERS MD DICTATED DATE/TIME: 09/07/24327 SIGNED BY: YAYO ROGERS MD SIGNED DATE/TIME: 09/07/24327 CC: X-Ray, Labs, Meds, VS Comment 79-year-old female with a history of CHF and hypertension complaining of dysuria, hematuria and right flank pain Vitals unremarkable Exam remarkable for suprapubic and right flank tenderness to palpation Rhythm strip independently interpreted by me: Sinus rhythm, rate 86, no ectopy. Patient refused CT abdomen and pelvis initially, stating she was allergic to morphine and wanted dilaudid. CT abd pelvis: PROCEDURE(s): ABPL - CT AB PEL WO CON-NO ORAL OR IV REASON: R flank pain dysuria hematuria ORDER NUMBER(s): [id number], ACCESSION NUMBER(s): [id number] Examination: ABPL CLINICAL INDICATION: R flank pain dysuria hematuria COMPARISON: None. CONTRAST USED: None. TECHNIQUE: A plain CT study of the abdomen and pelvis is performed. The examination was performed with 5 mm thin slices. Multiplanar reconstructions were obtained. CT scan done according to ALARA (As Low As Reasonably Achievable). FINDINGS: CT ABDOMEN: Lung base: Subsegmental atelectasis is seen in lingula and left lower lobe. Unenhanced Liver: The liver is normal in size. Hypodense cysts seen in liver, largest measuring 14 mm. These are likely benign and require no follow-up. There is no intrahepatic biliary radicle dilatation. Gallbladder: The gallbladder is normal and reveals no intrinsic abnormality. The common bile duct is not dilated. Unenhanced Pancreas: The pancreas is normal in size and shape. No focal lesion is seen within. The peripancreatic fat-planes are normal. Spleen: The spleen is normal in size and does not show any focal abnormality. Retroperitoneum: Both adrenal glands are normal in size and morphology in this unenhanced CT scan. There is no significant retroperitoneal lymphadenopathy. The kidneys are normal in size with no hydronephrosis. Non-obstructive bilateral renal calculi seen, largest measuring 9 mm in midpole of right kidney. Vessels: Non-aneurysmal ASVD is seen involving the aorta and its branches. IVC and the mesenteric vessels cannot be commented in this unenhanced CT scan. Small umbilical hernia is seen containing fat. Stomach and bowel: The bowel loops are unremarkable. There is no ascites. Skeletal system: Degenerative changes are seen involving the spine in the form of marginal osteophytes. CT PELVIS: Appendix: The appendix is not visualized. Colon: Scattered colonic diverticulosis is seen without diverticulitis. Bladder: The urinary bladder is unremarkable. Uterus and ovaries: Post hysterectomy status. No adnexal pathology. No abnormal fluid collection is seen. No pelvic lymphadenopathy is identified. IMPRESSION: 1. Scattered colonic diverticulosis is seen without diverticulitis. 2. Non-obstructive bilateral renal calculi seen, largest measuring 9 mm in midpole of right kidney. 3. No abdominal mass or adenopathy. 4. No ascites. 5. No free air or inflammatory changes. 6. No hydronephrosis. 7. Additional chronic and/or ancillary findings as detailed above. 8. Suggest clinical correlation and follow-up as clinically deemed necessary. Electronically Signed 09/07/2024 03:28 Barrett Segura remarkable for WBC 2.5, hemoglobin 10.4, hematocrit 31.4, platelets 85. CMP remarkable for AST 78, ALT 57, no other abnormalities of acute significance. Troponin negative x2. BNP unremarkable. UA- pt declined to give urine sample and refused catheterization Morphine was initially ordered, but pt refused, stating she is allergic. She also states she is allergic to NSAIDs and Tylenol. She states she can only take Dilaudid and oxycodone. Patient treated with the following in the ED: Dilaudid 0.5 mg IV, Zofran 4 mg IV, Rocephin 1 g IV On reevaluation, pt is well appearing, re-applying makeup, does not appear to be in distress. VS are stable. Hospitalization was considered, however patient had rapid improvement of symptoms with treatment in the ED, and I no longer feel hospitalization is necessary. Patient now appears stable for outpatient treatment and close follow-up with her primary physician. Will prescribe antibiotics for presumed UTI. Rx Keflex, Pyridium. Time of 1ST Reevaluation: 22:28 Reevaluation 1ST: Unchanged Patient Education/Counseling: Diagnosis, Treatment, Prognosis Family Education/Counseling: No Family Present Additional Information I reviewed the following notes from patient's past medical encounters: The following tests were ordered, and results were reviewed by me: EKG, TROP - x3, CBC, CMP, BNP, XY CHEST, UA, CT AB PEL WO CON, URINE BACTERIAL CULTURE Additional Information was gathered from interviewing the following independent historians: EMS I reviewed and agreed with the following test results read by other providers: CT AB PEL WO CON, XY CHEST I discussed treatment and results with medical personnel and: patient Departure 1 Departure Time of Disposition: 02:24 Impression: Primary Impression: UTI (urinary tract infection) Qualified Codes: N39.0 - Urinary tract infection, site not specified; R31.9 - Hematuria, unspecified Additional Impressions: Pancytopenia Kidney stones Disposition: 01 HOME / SELF CARE / HOMELESS Condition: Stable Additional Instructions: Your blood tests showed you have a low white blood cell count, mild anemia and low platelets. Your CT showed you have stones in both kidneys, however they are not causing a blockage or problems with your kidney function. This may be why you see blood in your urine. I have prescribed antibiotics to treat a probable urinary tract infection. Continue taking your own pain medication at home. Follow-up with your primary doctor in 1-2 days. e-Prescriptions Phenazopyridine HCl (Phenazopyridine Hydrochol) 200 Mg Tab 200 MG PO TID PRN, #9 TAB prn urinary pain Prov: MAVIS WYMAN MD 09/07/24 Cephalexin Monohydrate (Cephalexin) 500 Mg Cap 1 CAP PO QID for 10 Days, #40 CAP Prov: MAVIS WYMAN MD 09/07/24 Discharged With: Self Critical Care Note Critical Care Time?: No Stability Stability form required: No Heart Score Heart Score: Heart Score Response (Comments) Value History N/A 0 EKG N/A 0 Age N/A 0 Risk Factors N/A 0 Troponin N/A 0 Total 0 I personally scribed for MAVIS WYMAN MD ([email or web address]) on 09/06/24 at 22:24. Electronically submitted by Adilia Blair ([email or web address]). I personally scribed for MAVIS WYMAN MD ([email or web address]) on 09/06/24 at 22:25. Electronically submitted by Adilia Blair ([email or web address]). I personally scribed for MAVIS WYMAN MD ([email or web address]) on 09/06/24 at 22:29. Electronically submitted by Adilia Blair ([email or web address]). I personally scribed for MAVIS WYMAN MD ([email or web address]) on 09/07/24 at 03:26. Electronically submitted by Adilia Blair ([email or web address]). I personally scribed for MAVIS WYMAN MD ([email or web address]) on 09/07/24 at 03:41. Electronically submitted by Adilia Blair ([email or web address]). MAVIS WYMAN MD Sep 06, 2024 22:24
[2024-09-06 22:50] LABS: Basophils # (auto) 0 10 ^3/uL (0-0.2); Basophils % (auto) 1.1 % (0.0-2.0); Eosinophils # (auto) 0 10 ^3/uL (0-0.8); Eosinophils % (auto) 1.9 % (0.0-7.0); Hematocrit 31.4 % (36.0-46.0); Hemoglobin 10.4 g/dL (12.2-16.2); Lymphocytes % (auto) 39.5 % (10.0-50.0); Mean Corpuscular Hemoglobin 35.9 pg (28.0-32.0); Mean Corpuscular Hgb Conc. 33.1 g/dL (32.0-36.0); Mean Corpuscular Volume 108.5 fL (80.0-100.0); Monocytes # (auto) 0.3 10 ^3/uL (0-1.3); Neutrophils # (auto) 1.1 10 ^3/uL (1.6-8.6); Neutrophils % (auto) 46.5 % (37.0-80.0); Nucleated Red Blood Cells % 0.6 %; Platelet Count (auto) 85 10^3/uL (140-450); Red Blood Cells 2.89 10^6/uL (4.0-5.20); Red Cell Distribution Width 16.5 % (11.8-14.3); White Blood Cell 2.5 10^3/uL (4.4-10.8)
--- NOTE | 2024-09-06 22:56 | ECG ---
[facility] Test Date: 2024-09-06 Test Time: 21:36:57 Pat Name: EMELIA RIVERA Department: ER Room: Gender: F Bakery Helper: ER : 1945 Requested By: EMERGENCY EMERGENCY Order Number: [id number] Reading MD: Toan Crum Measurements Intervals [place] Rate: 79 P: 30 MO: 283 QRS: -6 QRSD: 143 T: 135 QT: 449 QTc: 515 Interpretive Statements Sinus rhythm Prolonged MO interval Right bundle branch block Abnormal T, consider ischemia, lateral leads Baseline wander in lead(s) V2 Electronically Signed On 09-07-2024 10:27:32 PST by Toan Crum Please click the below link to view image of tracing.
[2024-09-06 23:03] LABS: Alanine Aminotransferase 57 U/L (7-40); Albumin 4.2 g/dL (3.2-4.8); Alkaline Phosphatase 85 U/L (46-116); Anion Gap 6 (5-15); Aspartate Aminotransferase 78 U/L (13-40); BUN/Creatinine Ratio 16.9 (10.0-20.0); Bilirubin, Total 0.8 mg/dL (0.2-1.0); Blood Urea Nitrogen 12 mg/dL (9-23); Calcium 9.6 mg/dL (8.7-10.4); Carbon Dioxide 30 mmol/L (20-31); Chloride 107 mmol/L (98-107); Glucose 105 mg/dL (74-106); Potassium 3.9 mmol/L (3.5-5.1); Sodium 143 mmol/L (136-145); Total Protein 6.5 g/dL (5.7-8.2)
[2024-09-06] MEDS: cefTRIAXone 1GM/50ML D5W 50 ML IV ONE (23:56)
[2024-09-07] MEDS: ONDANSETRON HCL 4 MG/2 ML VIAL IV ONE (00:17)
[2024-09-07] MEDS: MORPHINE SULFATE 4 MG/ML SYR/VIAL IV ONE (00:19)
[2024-09-07] MEDS: HYDROmorphone HCL 2 MG/ML VL/or syr IV ONE (02:30)
[2024-09-07 03:00] VITALS: BP 130/44; PULSE 76; RESP 22; O2SAT 96
--- NOTE | 2024-09-07 03:08 | DVH ---
Examination: CXRP Clinical Indication: Cough. Comparison: None. Technique: Frontal radiograph of the chest was obtained. Findings: Haziness is seen in bilateral mid and lower zones likely due to overlying soft tissue shadow Rest of the Lungs are clear and well expanded with no pulmonary infiltrate or pleural effusion. There is no pneumothorax. Mild cardiomegaly. No acute osseous abnormality is seen. Sternotomy wires are seen. Surgical hardware is seen in the cervical spine Impression: 1. Haziness is seen in bilateral mid and lower zones likely due to overlying soft tissue shadow. 2. Mild cardiomegaly. 3. Sternotomy wires are seen. 4. Surgical hardware is seen in the cervical spine. Electronically Signed 09/07/2024 03:07 Barrett Segura
--- NOTE | 2024-09-07 03:29 | DVH ---
Examination: ABPL CLINICAL INDICATION: R flank pain dysuria hematuria COMPARISON: None. CONTRAST USED: None. TECHNIQUE: A plain CT study of the abdomen and pelvis is performed. The examination was performed with 5 mm thin slices. Multiplanar reconstructions were obtained. CT scan done according to ALARA ( As Low As Reasonably Achievable). FINDINGS: CT ABDOMEN: Lung base: Subsegmental atelectasis is seen in lingula and left lower lobe. Unenhanced Liver: The liver is normal in size. Hypodense cysts seen in liver, largest measuring 14 mm. These are likely benign and require no follow-up. There is no intrahepatic biliary radicle dila tation. Gallbladder: The gallbladder is normal and reveals no intrinsic abnormality. The common bile duct i s not dilated. Unenhanced Pancreas: The pancreas is normal in size and shape. No focal lesion is seen within. The peripancreatic fat-planes are normal. Spleen: The spleen is normal in size and does not show any focal abnormality. Retroperitoneum: Both adrenal glands are normal in size and morphology in this unenhanced CT scan. There is no significant retroperitoneal lymphadenopathy. The kidneys are normal in size with no hydronephrosis. Non-obstructive bilateral renal calculi seen, largest measuring 9 mm in midpole of right kidney. Vessels: Non-aneurysmal ASVD is seen involving the aorta and its branches. IVC and the mesenteric v essels cannot be commented in this unenhanced CT scan. Small umbilical hernia is seen containing fat. Stomach and bowel: The bowel loops are unremarkable. There is no ascites. Skeletal system: Degenerative changes are seen involving the spine in the form of marginal osteophyt es. CT PELVIS: Appendix: The appendix is not visualized. Colon: Scattered colonic diverticulosis is seen without diverticulitis. Bladder: The urinary bladder is unremarkable. Uterus and ovaries: Post hysterectomy status. No adnexal pathology. No abnormal fluid collection is seen. No pelvic lymphadenopathy is identified. IMPRESSION: 1. Scattered colonic diverticulosis is seen without diverticulitis. 2. Non-obstructive bilateral renal calculi seen, largest measuring 9 mm in midpole of right kidney. 3. No abdominal mass or adenopathy. 4. No ascites. 5. No free air or inflammatory changes. 6. No hydronephrosis. 7. Additional chronic and/or ancillary findings as detailed above. 8. Suggest clinical correlation and follow-up as clinically deemed necessary. Electronically Signed 09/07/2024 03:28 Barrett Segura
[2024-09-07] MEDS ORDERED: PHEN-1045 PO (03:54)
[2024-09-07] MEDS ORDERED: CEPH500C PO (03:54)
== END 2024-09-07 04:22 | disposition home or self-care (01) ==
LOC: EDBD 21:25 → ER 21:25 → EDUNIT# 21:25 → ER 09-07 04:22
DX: D61.818 Other pancytopenia (principal); N20.0 Calculus of kidney; N39.0 Urinary tract infection, site not specified; I50.9 Heart failure, unspecified; Z98.890 Other specified postprocedural states; Z79.899 Other long term (current) drug therapy; Z88.6 Allergy status to analgesic agent; Z88.8 Allergy status to other drugs, medicaments and biological substances
CPT/HCPCS: 36415; 71045; 74176; 80053; 83880; 84484; 85025; 93005; J2405

== ENCOUNTER 2024-09-07 10:33 | Inpatient (IN) | payer MEDICARE, MEDICAID ==
[~2024-09-07] VITALS: Ht 157.5 cm; Wt 78.7 kg
[~2024-09-07 10:33] MED LIST changes: +CEPH500C PO
--- NOTE | 2024-09-07 10:59 | ED.PDOC ---
GI ASSESSMENT HPI Comments This is a 79-year-old female who comes in with chief complaint of rectal bleeding. The patient states that the symptoms started this morning. She states that the symptoms worsened about 1 hour ago. She denies any history of this in the past. She states that she was trying to get into a family members car and then had a syncopal episode and hit the ground. She denies any head trauma. She is complaining of some nausea and vomiting but states that she has had dark stool as well as some blood when she wiped. She also had some hematuria yesterday. At this time the patient has no other complaints. States that she is having some lower abdominal pain which she rates as a 5/10. Chief Complaint: GI Bleed Time Seen by MD: 10:36 Primary Care Provider: ZAHIRA Reviewed Notes: Nurses Notes, Medications, Allergies (Allergies listed above) Allergies: Coded Allergies: Acetaminophen (Unverified Allergy, Severe, 04/03/14) Ketorolac Tromethamine (Unverified Allergy, Severe, 04/03/14) NSAIDs (Unverified Allergy, Severe, 04/03/14) Tramadol (Unverified Allergy, Severe, 04/03/14) Metronidazole (Verified Allergy, Intermediate, FACIAL NUMBNESS, 05/22/14) Iodine (Verified Allergy, Unknown, 11/15/16) Promethazine (Unverified Allergy, Unknown, 05/02/14) Home Meds Active Scripts Ergocalciferol (VITAMIN D 11059 UNIT) 50,000 [place], [address] UNIT PO Q7D for 90 Days, #14 CAP Prov:TEJAS HORNE RESIDENT 06/16/24 Diphenhydramine Hcl (BENADRYL CAPSULE) 25 Mg Cp, 25 MG PO Q4HP PRN for 7 Days, #15 CAP Prov:TEJAS HORNE RESIDENT 06/16/24 Cyanocobalamin (Gnp Vitamin B12) 500 Mcg Tab, 1000 MCG PO DAILY for 90 Days, #180 TAB Prov:TEJAS HORNE RESIDENT 06/16/24 Cephalexin (KEFLEX CAPSULE) 250 Mg Cp, 500 MG PO BID for 5 Days, #20 CAP Prov:TEJAS HORNE RESIDENT 06/16/24 Reported Medications Methenamine Hippurate (Methenamine Hippurate) 1 Gm Tab, 1 TAB PO BID for 30 Days, #60 06/12/24 Tamsulosin Hcl (Tamsulosin Hcl) 0.4 Mg Cap, 1 CAP PO DAILY for 30 Days, #30 06/12/24 Phenazopyridine HCl (Phenazopyridine Hydrochol) 200 Mg Tab, 1 TAB PO TID 06/10/24 Oxycodone Hcl (OXYCODONE HCL) 5 Mg Tb, 15 MG PO Q4HR, TAB 06/10/24 Potassium Chloride (Potassium Chloride ER) 20 Meq Tab, 20 MEQ PO BID, TAB 02/08/24 Apixaban Base (ELIQUIS) 5 Mg Tab, 2.5 TAB PO BID 01/29/24 Lisinopril (Lisinopril) 10 Mg Tab, 1 TAB PO DAILY 01/29/24 Information Source: Patient Mode of Arrival: The patient uses a walker secondary to weakness Timing: Hours Duration: Since onset Prehospital treatment: None Quality: Aching, Cramping Vomitus: Bilious Stool: Black Severity: Moderate Recent: None Recent Hx of: None Pain Location: RLQ, LLQ Modifying Factors: Nothing Associated sign and symptoms: Nausea, Vomiting, Abdominal Pain, Blood in Stool, Other (Associated hematuria) Past Medical History PAST MEDICAL HISTORY: Asthma, CHF, CVA, High Lipids, HTN, Kidney Stones, [place] Surgical History: Appendectomy, CABG, Hernia Repair, Hysterectomy, Tonsill ectomy HIGHER EDUCATION ADMINISTRATOR History: No Pertinent HIGHER EDUCATION ADMINISTRATOR History Family History Family History: Family hx of heart praful Family History (Other): chf Social History Smoker: Non-Smoker Alcohol: Denies ETOH Use Drugs: Denies Drug Use Lives In: Home Constitutional: reports: weakness; denies: chills, diaphoresis, fatigue, fever, malaise, sweats, others EENTM: denies: blurred vision, double vision, ear bleeding, ear discharge, ear drainage, ear pain, ear ringing, eye pain, eye redness, hearing loss, mouth pain, mouth swelling, nasal discharge, nose bleeding, nose congestion, nose pain, photophobia, tearing, throat pain, throat swelling, voice changes, others Respiratory: denies: cough, hemoptysis, orthopnea, SOB at rest, shortness of breath, SOB with excertion, stridor, wheezing, others Cardiovascular: denies: chest pain, dizzy spells, diaphoresis, Dyspnea on exertion, edema, irregular heart beat, left arm pain, lightheadedness, palpitations, PND, syncope, others Gastrointestinal: reports: abdominal pain, nausea, rectal bleeding, vomiting; denies: abdomen distended, blood streaked bowels, constipated, diarrhea, dysphagia, difficulty swallowing, hematemesis, melena, poor appetite, poor fluid intake, rectal pain, others Genitourinary: reports: hematuria; denies: abnormal vagina bleeding, burning, dyspareunia, dysuria, flank pain, frequency, incontinence, pain, , vagina discharge, urgency, others Neurological: denies: dizziness, fainting, headache, left sided numbness, left sided weakness, numbness, paresthesia, pre-existing deficit, right sided numbness, right sided weakness, seizure, speech problems, tingling, tremors, weakness, others Musculoskeletal: denies: back pain, gout, joint pain, joint swelling, muscle pain, muscle stiffness, neck pain, others Integumetry: denies: bruises, change in color, change in hair/nails, dryness, laceration, lesions, lumps, rash, wounds, others Allergic/Immunocompromised: denies: Difficulty Healing, Frequent Infections, Hives, Itching, others Hematologic/Lymphatic: denies: anemia, blood clots, easy bleeding, easy bruising, swollen glands, others Endocrine: denies: excessive hunger, excessive sweating, excessive thirst, excessive urination, flushing, intolerance to cold, intolerance to heat, unex plained weight gain, unexplained weight loss, others Psychiatric: denies: anxiety, bipolar disorder, depression, hopeless, panic disorder, schizophrenia, sleepless, suicidal, others Physical Exam General Appearance: Moderate Distress HEENT: Normal ENT Inspection, Pharynx Normal, TMs Normal Neck: Full Range of Motion, Non-Tender, Normal, Normal Inspection Respiratory: Chest Non-Tender, Lungs Clear, No Accessory Muscle Use, No Respiratory Distress, Normal Breath Sounds Cardiovascular: No Edema, No JVD, No Murmur, No Gallop, Normal Peripheral Pulses, Regular Rate/Rhythm Breast Exam: Deferred Gastrointestinal: LLQ, No Organomegaly, No Pulsatile Mass, Normal Bowel Sounds, RLQ, Soft, Tenderness Genitalia: Deferred Pelvic: Deferred Rectal: Deferred Extremities: No calf tenderness, Normal capillary refill, Normal inspection, Normal range of motion, Non-tender, No pedal edema Musculoskeletal : Apperance: Normal Neurologic: Alert, personal banking advisor II-XII nml as Tested, No Motor Deficits, Normal Affect, Normal Mood, No Sensory Deficits Cerebellar Function: Normal Reflexes: Normal Skin: Dry, Normal Color, Warm Lymphatic: No Adenopathy EKG EKG : Pulse Rate (adult): 86 [place]: Normal Cardiac Rhythm: NSR Block: RBBB Hypertrophy: LAE Was a procedure done? Was a procedure done?: No GI differential Dx Differential Diagnosis: Gastritis/PUD, Gastroenteritis, GI hemorrhage, Inflammatory BD, UTI, Electrolyte Imbalance X-Ray, Labs, Meds, VS Vital Signs Date Time Temp Pulse Resp B/P (MAP) Pulse Ox O2 Delivery O2 Flow Rate FiO2 09/07/24 11:03 86 09/07/24 11:01 86 09/07/24 10:40 97.8 90 24 134/60 (84) 99 IV Hep-Lock was established. The patient was being typed and screened at this time. CT ABD PEL: Findings: Evaluation of vasculature and solid organs is limited due to lack of intravenous contrast use. Lung Bases: Lung bases are clear. Visualized portions of the heart and pericardium are unremarkable. Liver: The liver is normal in size. There are low attenuating lesions in the right lobe measuring up to 1.3 cm in the dome. These are similar to the prior study. Gallbladder and Biliary Tree: The gallbladder has gallstones. No intrahepatic or extrahepatic biliary ductal dilatation. Spleen: Unremarkable Pancreas: The pancreas is grossly unremarkable. Adrenal Glands: Unremarkable Kidneys: No evidence of hydronephrosis. Multiple bilateral nonobstructive intrarenal calculi the largest measuring 7 mm in the right kidney interpolar region. There are 2 right cortical renal cysts, the larger measuring 2.5 cm which measures simple fluid attenuation. GI tract: The stomach is grossly normal in appearance. No evidence of small bowel wall thickening or abnormal dilatation to suggest bowel obstruction. Sigmoid diverticulosis without acute diverticulitis. The appendix is not visualized, however no inflammatory changes in the right lower quadrant to suggest acute appendicitis. Peritoneum/mesentery/retroperitoneum. No evidence of free intraperitoneal air. No ascites. No evidence of suspicious lymphadenopathy. Abdominal Wall: Unremarkable. Vasculature: The visualized abdominal aorta is normal in size and caliber. Evaluation of abdominal and pelvic vessels is limited due to lack of intravenous contrast. There are atherosclerotic calcifications in the aorta. Urinary Bladder: Grossly unremarkable for degree of distention. Pelvic Organs: Unremarkable Musculoskeletal: Posterior L1 vertebral body. Intraosseous hemangioma noted in the T11 vertebral body. Status post median sternotomy. IMPRESSION: 1. No acute abdominal or pelvic findings. 2. Sigmoid diverticulosis without acute diverticulitis. 3. Bilateral nonobstructive nephrolithiasis. Right renal simple cysts. No follow-up needed. 4. Suspect cholelithiasis. 5. Lytic lesion in the L1 vertebral body. Malignancy is not excluded. HS:Y ATED BY: ERON COLLINS MD DICTATED DATE/TIME: 09/07/24 113 SIGNED BY: ERON COLLINS MD SIGNED DATE/TIME: 09/07/24 113 CC: The patient was being admitted to the hospitalist. Images Reviewed?: Images reviewed and evaluated by me Time of 1ST Reevaluation: 10:59 Reevaluation 1ST: Unchanged Patient Education/Counseling: Diagnosis, Treatment, Prognosis Family Education/Counseling: No Family Present Departure 1 Departure Time of Disposition: 13:09 Impression: Primary Impression: Acute abdominal pain Additional Impression: Lower GI bleed Disposition: ADMITTED INPATIENT Admit to: Med Surg Condition: Fair Critical Care Note Critical Care Time?: No Stability Stability form required: Yes Unstable for transfer: Telemetry monitoring (Telemetry monitoring required), ED Physician Assesment (Clinical assesment) Heart Score Heart Score: Heart Score Response (Comments) Value History N/A 0 EKG N/A 0 Age N/A 0 Risk Factors N/A 0 Troponin N/A 0 Total 0 I personally scribed for ESE HERNANDEZ MD ([email or web address]) on 09/07/24 at 11:45. Electr onically submitted by Tasha Sutherland ([email or web address]). I personally scribed for ESE HERNANDEZ MD ([email or web address]) on 09/07/24 at 12:13. Electronically submitted by Tasha Sutherland ([email or web address]). ESE HERNANDEZ MD Sep 07, 2024 10:59
--- NOTE | 2024-09-07 11:34 | DVH ---
Exam: CT CT AB PEL WO CON-NO ORAL OR IV History: Pain Comparison Study: CT scan of the abdomen pelvis performed on 06/10/2024. Technique: Multidetector spiral CT of the abdomen and pelvis was performed from lung bases to pubic s ymphysis. Imaging was performed without intravenous contrast. Coronal and sagittal multiplanar refor mats were obtained from the axial data set by the technologist. Radiation Dose : 1. Abdomen/Pelvis: CTDIvol 10.1 mGy, DLP 443.2 mGy*cm. Findings: Evaluation of vasculature and solid organs is limited due to lack of intravenous contrast use. Lung Bases: Lung bases are clear. Visualized portions of the heart and pericardium are unremarkable. Liver: The liver is normal in size. There are low attenuating lesions in the right lobe measuring up to 1.3 cm in the dome. These are similar to the prior study. Gallbladder and Biliary Tree: The gallbladder has gallstones. No intrahepatic or extrahepatic biliary ductal dilatation. Spleen: Unremarkable Pancreas: The pancreas is grossly unremarkable. Adrenal Glands: Unremarkable Kidneys: No evidence of hydronephrosis. Multiple bilateral nonobstructive intrarenal calculi the larg est measuring 7 mm in the right kidney interpolar region. There are 2 right cortical renal cysts, the larger measuring 2.5 cm which measures simple fluid attenuation. GI tract: The stomach is grossly normal in appearance. No evidence of small bowel wall thickening or abnormal dilatation to suggest bowel obstruction. Sigmoid diverticulosis without acute diverticuliti s. The appendix is not visualized, however no inflammatory changes in the right lower quadrant to iglesias ggest acute appendicitis. Peritoneum/mesentery/retroperitoneum. No evidence of free intraperitoneal air. No ascites. No evidenc e of suspicious lymphadenopathy. Abdominal Wall: Unremarkable. Vasculature: The visualized abdominal aorta is normal in size and caliber. Evaluation of abdominal a nd pelvic vessels is limited due to lack of intravenous contrast. There are atherosclerotic calcifica tions in the aorta. Urinary Bladder: Grossly unremarkable for degree of distention. Pelvic Organs: Unremarkable Musculoskeletal: Posterior L1 vertebral body. Intraosseous hemangioma noted in the T11 vertebral body . Status post median sternotomy. IMPRESSION: 1. No acute abdominal or pelvic findings. 2. Sigmoid diverticulosis without acute diverticulitis. 3. Bilateral nonobstructive nephrolithiasis. Right renal simple cysts. No follow-up needed. 4. Suspect cholelithiasis. 5. Lytic lesion in the L1 vertebral body. Malignancy is not excluded. HS:Y
--- NOTE | 2024-09-07 11:59 | DVHHP2 ---
History of Present Illness Reason for Visit: Rectal bleeding and syncopal episode History of Present Illness 79-year-old female past medical history asthma CHF CVA hyperlipidemia hypertension kidney stone [place] surgical history appendectomy CABG hernia repair hysterectomy tonsillectomy chief complaint patient states that she has been having some rectal pain and bleeding that started today. Patient states when she knows the believes she had also syncopized and hit the ground. She states she was from [facility] she here visiting her friend. With her pass out they sent her to the ER for evaluation. Patient denied any chest pain no shortness with the breath prior to passing out. She did not complain of hitting her head and she has a mild headache. Patient does admit to having some dark stools and she also has some blood in her urine today. She denies any abdominal pain but does complain of nausea and vomiting. But there was no blood in her emesis. When evaluating patient's labs and imaging looks like CT scan abdomen pelvis completed showed sigmoid diverticulosis bilateral nonobstructing kidney stones in gall stones she also has a L1 lytic lesion on her spine questionable malignancy. With these findings we will admit and also evaluation for possibly biopsy of the L1 lesion Past Medical History See HPI above Past Surgical History See HPI above Family History Reviewed, non-contributory to the management of this case. Past Social History The patient lives at home, denies smoking, alcohol or illicit drugs abuse. Review of Systems Constitutional: No: Fever, Chills, Sweats, Weakness, Malaise, Other Eyes: No: Pain, Vision change, Conjunctivae inflammation, Eyelid inflammation, Other, Redness ENT: No: Ear pain, Ear discharge, Nose pain, Nose discharge, Nose congestion, Mouth pain, Mouth swelling, Throat pain, Throat swelling, Other Respiratory: No: Cough, Dry, Shortness of breath, SOB with excertion, Wheezing, Hemoptysis, Pleuritic Pain, Sputum, Wheezing, Other Cardiovascular: Other (syncope); No: Chest Pain, Palpitations, Orthopnea, Paroxysmal Noc. Dyspnea, Edema, Lt Headedness Gastrointestinal: Nausea, Vomiting; No: Abdominal Pain, Diarrhea, Constipation, Melena, Hematochezia, Other Genitourinary: No Dysuria, No Frequency, No Incontinence, No Hematuria, No Retention, No Other Musculoskeletal: No: other, neck pain, shoulder pain, arm pain, back pain, hand pain, leg pain, foot pain Skin: No: Rash, Lesions, Jaundice, Bruising, Other Neurological: No: Weakness, Numbness, Incoordination, Change in speech, Confusion, Seizures, Other Allergies: Coded Allergies: Acetaminophen (Unverified Allergy, Severe, 04/03/14) Ketorolac Tromethamine (Unverified Allergy, Severe, 04/03/14) NSAIDs (Unverified Allergy, Severe, 04/03/14) Tramadol (Unverified Allergy, Severe, 04/03/14) Metronidazole (Verified Allergy, Intermediate, FACIAL NUMBNESS, 05/22/14) Enoxaparin (Unverified Allergy, Unknown, 05/09/24) Iodine (Verified Allergy, Unknown, 11/15/16) Promethazine (Unverified Allergy, Unknown, 05/02/14) Uncoded Allergies: MORPHI (Allergy, Intermediate, SWELLING , 09/07/24) Exam Vital Signs Vital Signs Date Time Temp Pulse Resp B/P (MAP) Pulse Ox O2 Delivery O2 Flow Rate FiO2 09/07/24 11:03 86 09/07/24 10:40 97.8 24 134/60 (84) 99 General Appearance: Alert, Oriented X3, Cooperative, No acute distress HEENT: Atraumatic, PERRLA, EOMI, Mucous membr. moist/pink Respiratory: Clear to auscultation, Normal air movement Cardiovascular: Regular rate, Normal S1, Normal S2, No murmurs Abdominal: Normal bowel sounds, Soft, No tenderness, No hepatospenomegaly, No masses, Other (unable to assess rectal exam in wheelchair ) Extremities: No clubbing, No cyanosis, No edema, Normal pulses, No tenderness/swelling Skin: No rashes, No breakdown, No significant lesion Neuro: Other (in wheelchair on my exam) Psych/Mental Status: Mental status NL, Mood NL Labs/Xrays CT scan of the abdomen and pelvis shows sigmoid diverticulosis, bilateral nonobstructing kidney stone gallstones and L1 listed lesion questionable malignancy I reviewed labs, imaging CT scan abdomen pelvis, EKG and all diagnostic studies on this patient from ED records and the medical chart Assessment/Plan Assessment/Plan acute upper gi bleed ct scan normal shows diverticulosis Order Protonix N.p.o. for now IV fluids Ordered Zosyn ordered gi consult fu results Type and screen to transfuse since hgb less than 8.0 hold anticoags pt/inr if not completed ng tube if excessive bleeding hgb q6h for 24 hours occult blood in stool acute syncope likely from bleeding vs diverticulosis ordered CT the brain fu results ordered echocardiogram Orthostatic vital signs IV fluids for now Fall precautions PT eval and treat ordered trop fu results acute sigmoid diverticulosis found on ct scan chronic bilateral non obstructing stone found on ct scan ordered urine fa results acute lumbar lystic lesion l1 found on ct scan spoke with ortho spine provider recs mri l spine fu results will need to rule out malignancy vs lystic mass ortho spine was consulted fu recs acute hematuria ordered flomax for now ct scan non obstructing kidney stones ordered ua fu results ordered zosyn for now chronic problems with continuation of medication asthma chf cva hld htn kidney stone mi plan admit to medicine for further workup Plan discussed with: Patient Date of Service: Sep 07, 2024 Billing Provider: JACE MARSHALL DNP Common Visit Codes: [id number] INP/OBS CARE (HIGH) JACE MARSHALL DNP Sep 07, 2024 11:59
[2024-09-07] MEDS ORDERED: NITROGLYCERIN 0.4 MG SL TAB SL PRN (12:45)
[2024-09-07] MEDS ORDERED: DOCUSATE SOD 100 MG CAP PO PRN (12:45)
[2024-09-07] MEDS ORDERED: SODIUM CHLORIDE 0.9% 1,000 ML IV SCH (12:45)
[2024-09-07] MEDS ORDERED: MORPHINE SULFATE INJ 2 MG/ml SYRG IV PRN ×2 (12:45→18:45)
[2024-09-07] MEDS: ERGOCALCIFEROL 50,000 UNIT(1.25MG) CAP PO SCH (12:45)
[2024-09-07 13:06] VITALS: BP 129/46; PULSE 89; RESP 17; TEMP 98.7; O2SAT 94
[2024-09-07 16:10] VITALS: PULSE 66; RESP 20; O2SAT 95
[2024-09-07 16:10] LABS: Hematocrit 28.6 % (36.0-46.0); Hemoglobin 9.7 g/dL (12.2-16.2); Mean Corpuscular Hemoglobin 35.9 pg (28.0-32.0); Mean Corpuscular Hgb Conc. 33.7 g/dL (32.0-36.0); Mean Corpuscular Volume 106.5 fL (80.0-100.0); Platelet Count (auto) 77 10^3/uL (140-450); Red Blood Cells 2.69 10^6/uL (4.0-5.20); White Blood Cell 2.1 10^3/uL (4.4-10.8)
[2024-09-07 16:11] VITALS: BP 129/46; PULSE 89; TEMP 98.7; O2SAT 94
[2024-09-07 16:18] LABS: Albumin 3.9 g/dL (3.2-4.8); Alkaline Phosphatase 79 U/L (46-116); Anion Gap 4 (5-15); BUN/Creatinine Ratio 11.1 (10.0-20.0); Bilirubin, Total 0.9 mg/dL (0.2-1.0); Calcium 9.6 mg/dL (8.7-10.4); Carbon Dioxide 27 mmol/L (20-31); Glucose 105 mg/dL (74-106); Potassium 4.1 mmol/L (3.5-5.1); Sodium 140 mmol/L (136-145); Total Protein 6.5 g/dL (5.7-8.2)
[2024-09-07 16:21] LABS: Alanine Aminotransferase 59 U/L (7-40); Aspartate Aminotransferase 91 U/L (13-40); Blood Urea Nitrogen 7 mg/dL (9-23); Chloride 109 mmol/L (98-107); INR 1.07 (0.9-1.15); Partial Thromboplastin Time 29.3 SEC (24.5-34.5); Prothrombin Time 11.3 sec (9.3-11.8)
[2024-09-07 16:23] LABS: Band Neutrophils % (manual) 0; Basophils % (manual) 0 (0.0-2.0); Blast Cells 0; Metamyelocytes % 0; Myelocytes % 0; Promyelocytes % 0; Reactive Lymphocytes 0
[2024-09-07 17:11] LABS: Eosinophils % (manual) 2 (0-7); Lymphocytes % (manual) 52 (10.0-50.0); Monocytes % (manual) 4 (0-12); Platelet Estimate Decreased
[2024-09-07 17:15] VITALS: BP 151/59; PULSE 67; RESP 16; TEMP 98.8; O2SAT 95
[2024-09-07] MEDS: SODIUM CHLORIDE 0.9% 1,000 ML IV SCH (17:24)
[2024-09-07] MEDS: cefTRIAXone 1GM/50ML D5W 50 ML IV ONE (17:24)
[2024-09-07] MEDS: PANTOPRAZOLE 40 MG/10 ML VIAL INJ IV ONE (17:24)
[2024-09-07] MEDS ORDERED: HYDROcodone-ACET 5/325MG TAB PO PRN ×2 (17:30→18:30)
[2024-09-07] MEDS: PIPERACILLIN-TAZOB 3.375GM 100 ML IV ONE (18:45)
[2024-09-07] MEDS ORDERED: metroNIDAZOLE 500MG/100ML 100 ML IV ONE (18:45)
--- NOTE | 2024-09-07 19:01 | DVHINCON2 ---
Consultation - Spinal Surgery Date Seen: Sep 08, 2024 Referring Physician Referring Physician Danelle Good DNP Reason for Consultation Reason for Visit: Rectal bleeding and syncopal episode History of Present Illness History of Present Illness History of Present Illness 79-year-old female past medical history asthma CHF CVA hyperlipidemia hypertension kidney stone NV surgical history appendectomy CABG hernia repair hysterectomy tonsillectomy chief complaint patient states that she has been h aving some rectal pain and bleeding that started today. Patient states when she knows the believes she had also syncopized and hit the ground. She states she was from [facility] she here visiting her friend. With her pass out they sent her to the ER for evaluation. Patient denied any chest pain no shortness with the breath prior to passing out. She did not complain of hitting her head and she has a mild headache. Patient does admit to having some dark stools and she also has some blood in her urine today. She denies any abdominal pain but does complain of nausea and vomiting. But there was no blood in her emesis. When evaluating patient's labs and imaging looks like CT scan abdomen pelvis completed showed sigmoid diverticulosis bilateral nonobstructing kidney stones in gall stones she also has a L1 lytic lesion on her spine questionable malignancy. With these findings we will admit and also evaluation for possibly biopsy of the L1 lesion Past Medical/Surgical History Past Medical/Surgical History Past Medical History See HPI above Past Surgical History See HPI above Family and Social History Family and Social History Family History Reviewed, non-contributory to the management of this case. Past Social History The patient lives at home, denies smoking, alcohol or illicit drugs abuse. Allergies and medications Allergies: Coded Allergies: Acetaminophen (Unverified Allergy, Severe, 04/03/14) Ketorolac Tromethamine (Unverified Allergy, Severe, 04/03/14) NSAIDs (Unverified Allergy, Severe, 04/03/14) Tramadol (Unverified Allergy, Severe, 04/03/14) Metronidazole (Verified Allergy, Intermediate, FACIAL NUMBNESS, 05/22/14) Enoxaparin (Unverified Allergy, Unknown, 05/09/24) Iodine (Verified Allergy, Unknown, 11/15/16) Promethazine (Unverified Allergy, Unknown, 05/02/14) Uncoded Allergies: MORPHI (Allergy, Intermediate, SWELLING , 09/07/24) Home Meds Active Scripts Phenazopyridine HCl (Phenazopyridine Hydrochol) 200 Mg Tab, 200 MG PO TID PRN, #9 TAB prn urinary pain Prov:MAVIS WYMAN MD 09/07/24 Cephalexin Monohydrate (Cephalexin) 500 Mg Cap, 1 CAP PO QID for 10 Days, #40 CAP Prov:MAVIS WYMAN MD 09/07/24 Ergocalciferol (VITAMIN D 30368 UNIT) 50,000 [place], [address] UNIT PO Q7D for 90 Days, #14 CAP Prov:TEJAS HORNE [facility] 06/16/24 Diphenhydramine Hcl (BENADRYL CAPSULE) 25 Mg Cp, 25 MG PO Q4HP PRN for 7 Days, #15 CAP Prov:TEJAS HORNE [facility] 06/16/24 Cyanocobalamin (Gnp Vitamin B12) 500 Mcg Tab, 1000 MCG PO DAILY for 90 Days, #180 TAB Prov:TEJAS HORNE [facility] 06/16/24 Cephalexin (KEFLEX CAPSULE) 250 Mg Cp, 500 MG PO BID for 5 Days, #20 CAP Prov:TEJAS HORNE [facility] 06/16/24 Tamsulosin Hcl (Flomax) 0.4 Mg Cap, 0.4 MG PO QPM for 30 Days, #30 CAP Prov:THIAGO MOSCOSO [facility] [place] 05/10/24 Lisinopril (Lisinopril) 5 Mg Tab, 10 MG PO DAILY for 30 Days, #60 TAB Prov:THIAGO MOSCOSO [facility] 05/10/24 Ergocalciferol (VITAMIN D 43405 UNIT) 50,000 [place], [address]379 UNIT PO Q7D for 30 Days, #10 CAP Prov:THIAGO MOSCOSO [facility] 05/10/24 Cyanocobalamin (Gnp Vitamin B12) 500 Mcg Tab, 500 MCG PO DAILY for 30 Days, #30 TAB Prov:THIAGO MOSCOSO [facility] [place] 05/10/24 Reported Medications Methenamine Hippurate (Methenamine Hippurate) 1 Gm Tab, 1 TAB PO BID for 30 Days, #60 06/12/24 Tamsulosin Hcl (Tamsulosin Hcl) 0.4 Mg Cap, 1 CAP PO DAILY for 30 Days, #30 06/12/24 Phenazopyridine HCl (Phenazopyridine Hydrochol) 200 Mg Tab, 1 TAB PO TID 06/10/24 Oxycodone Hcl (OXYCODONE HCL) 5 Mg Tb, 15 MG PO Q4HR, TAB 06/10/24 Potassium Chloride (Potassium Chloride ER) 20 Meq Tab, 20 MEQ PO BID, TAB 02/08/24 Apixaban Base (ELIQUIS) 5 Mg Tab, 2.5 TAB PO BID 01/29/24 Lisinopril (Lisinopril) 10 Mg Tab, 1 TAB PO DAILY 01/29/24 Review of systems Review of Systems: HEENT:Normal, CVS:Normal, CVS:Abnormal, RESPIRATORY:Abnormal, GI:Abnormal, :Abnormal, MSK:Normal, NEURO:Abnormal Examination Vital signs Imaging studies EXAM: MRI LUMBAR SPINE WO CONTRAST HISTORY: LYTIC LESION L1 COMPARISON: CT scan of the abdomen and pelvis dated 09/07/2024 TECHNIQUE: MRI was performed utilizing multiple appropriate imaging planes and pulse sequences. FINDINGS: For the purposes of this report, the last square-shaped vertebra is considered L5. Prior to any surgery, correlation with lumbar spine radiographs should be done. VERTEBRAE: No significant compression deformity is noted. There is diffuse reduction in bone marrow signal. An approximately 2 cm benign hemangioma following fat signal in all of the sequences noted in T11 vertebral body. A 1.2 cm hemangioma is seen in the left side of L1 vertebral body and a 1 cm hemangioma is noted in right superior L4 vertebral body. SPINAL CORD: Terminates at the L1 level. No evidence of cord edema or myelomalacia within the partially visualized conus medullaris. PARASPINAL SOFT TISSUES: Unremarkable. INTERVERTEBRAL DISCS: T12-L1: No disc herniation, central canal stenosis or neural foramina narrowing. The posterior facets and ligamentum flavum are unremarkable. L1-L2: Mild broad-based posterior disc bulge with resultant mild central canal stenosis and mild left neural foraminal stenosis without nerve impingement. L2-L3: 3 mm degenerative grade 1 anterolisthesis of L2 on L3 without pars defects, mild broad-based posterior disc bulge, mild bilateral posterior facet and ligamentum flavum hypertrophy with mild central canal stenosis and mild bilateral neural foramina stenosis without nerve impingement. L3-L4: Mild broad-based posterior disc bulge, mild bilateral posterior facet and ligamenta flava hypertrophy with resultant mild central canal stenosis and mild bilateral neural foramina stenosis without definite nerve impingement. L4-L5: Mild broad-based posterior disc bulge, moderate bilateral posterior facet and ligamenta flava hypertrophy with resultant mild central canal stenosis and mild bilateral neural foramina stenosis without definite nerve impingement. L5-S1: Mild broad-based posterior disc bulge, moderate right and mild left posterior facet and ligamenta flava hypertrophy with resultant mild central canal stenosis and mild bilateral neural foramina stenosis without definite nerve impingement. OTHER: Bilateral renal cysts are seen measuring up to 3 cm. Few small hepatic cysts are noted. IMPRESSION: 1. Diffuse reduction in bone marrow signal throughout the visualized osseous structures, most probably due to red marrow reconversion, which can be seen in the setting of obesity, heavy smoking, diabetes, chronic anemia or other etiologies. The differential diagnosis includes myeloproliferative/lymphoproliferative diseases, iron deposition related pathologies or less likely diffuse skeletal metastasis. Recommend clinical and biochemical correlation. 2. T1 and T2 hyperintense lesions in T11, L1 and L4 vertebral bodies measuring up to 2 cm following fat signal on all sequences most compatible with benign hemangiomas. These appear partially lytic in the recent CT scan and correspond to the abnormality described in L1. 3. Multilevel degenerative disc disease and posterior facet arthropathy with no evidence of nerve impingement. Exam: CT CT AB PEL WO CON-NO ORAL OR IV History: Pain Comparison Study: CT scan of the abdomen pelvis performed on 06/10/2024. Technique: Multidetector spiral CT of the abdomen and pelvis was performed from lung bases to pubic symphysis. Imaging was performed without intravenous contrast. Coronal and sagittal multiplanar reformats were obtained from the axial data set by the technologist. Radiation Dose : 1. Abdomen/Pelvis: CTDIvol 10.1 mGy, DLP 443.2 mGy*cm. Findings: Evaluation of vasculature and solid organs is limited due to lack of intravenous contrast use. Lung Bases: Lung bases are clear. Visualized portions of the heart and pericardium are unremarkable. Liver: The liver is normal in size. There are low attenuating lesions in the right lobe measuring up to 1.3 cm in the dome. These are similar to the prior study. Gallbladder and Biliary Tree: The gallbladder has gallstones. No intrahepatic or extrahepatic biliary ductal dilatation. Spleen: Unremarkable Pancreas: The pancreas is grossly unremarkable. Adrenal Glands: Unremarkable Kidneys: No evidence of hydronephrosis. Multiple bilateral nonobstructive intrarenal calculi the largest measuring 7 mm in the right kidney interpolar region. There are 2 right cortical renal cysts, the larger measuring 2.5 cm which measures simple fluid attenuation. GI tract: The stomach is grossly normal in appearance. No evidence of small bowel wall thickening or abnormal dilatation to suggest bowel obstruction. Sigmoid diverticulosis without acute diverticulitis. The appendix is not visualized, however no inflammatory changes in the right lower quadrant to suggest acute appendicitis. Peritoneum/mesentery/retroperitoneum. No evidence of free intraperitoneal air. No ascites. No evidence of suspicious lymphadenopathy. Abdominal Wall: Unremarkable. Vasculature: The visualized abdominal aorta is normal in size and caliber. Evaluation of abdominal and pelvic vessels is limited due to lack of intravenous contrast. There are atherosclerotic calcifications in the aorta. Urinary Bladder: Grossly unremarkable for degree of distention. Pelvic Organs: Unremarkable Musculoskeletal: Posterior L1 vertebral body. Intraosseous hemangioma noted in the T11 vertebral body. Status post median sternotomy. IMPRESSION: 1. No acute abdominal or pelvic findings. 2. Sigmoid diverticulosis without acute diverticulitis. 3. Bilateral nonobstructive nephrolithiasis. Right renal simple cysts. No follow-up needed. 4. Suspect cholelithiasis. 5. Lytic lesion in the L1 vertebral body. Malignancy is not excluded. Vital Signs Date Time Temp Pulse Resp B/P (MAP) Pulse Ox O2 Delivery O2 Flow Rate FiO2 09/07/24 17:15 98.8 67 16 151/59 (89) 95 98.8 Medications Current Medications Medications (Trade) Dose Ordered Sig/Nay Route PRN Reason Start Time Stop Time Status Last Admin Cyanocobalamin (Vitamin B-12) 1,000 mcg DAILY PO 09/08/24 10:00 Ergocalciferol (Vitamin D 50,000 Unit) 50,000 unit Q7D PO 09/07/24 12:45 Tamsulosin HCl (Flomax) 0.4 mg HS PO 09/07/24 22:00 Lisinopril (Zestril Tablet) 10 mg DAILY PO 09/08/24 10:00 Patient Own Medication 1 tab BID PO 09/07/24 22:00 Sodium Chloride 1,000 ml @ 120 mls/hr Q8H20M IV 09/07/24 12:45 09/07/24 13:28 DC Ondansetron HCl (Zofran) 4 mg Q4HP PRN IV NAUSEA / VOMITING 09/07/24 12:45 Docusate Sodium (Colace Capsule) 100 mg BIDPRN PRN PO FOR CONSTIPATION 09/07/24 12:45 Morphine Sulfate 2 mg Q4HPRN PRN IV SEVERE PAIN (7-10 PAIN SCALE) 09/07/24 12:45 09/07/24 18:24 DC Nitroglycerin (Ntrostat Sublingual) 0.4 mg Q5MINP PRN SL FOR CHEST PAIN 09/07/24 12:45 Pantoprazole Sodium (Protonix) 40 mg BID IV 09/07/24 22:00 Sodium Chloride 1,000 ml @ 100 mls/hr Q10H IV 09/07/24 12:45 Ceftriaxone Sodium 50 ml @ 100 mls/hr DAILY@09 IV 09/08/24 09:00 Acetaminophen/ Hydrocodone Bitart ([place] 5/325MG Tab) 1 tab Q6HPRN PRN PO SEVERE PAIN (7-10 PAIN SCALE) 09/07/24 17:30 09/07/24 18:28 DC Acetaminophen/ Hydrocodone Bitart ([place] 5/325MG Tab) 1 tab Q6HPRN PRN PO SEVERE PAIN (7-10 PAIN SCALE) 09/07/24 18:30 09/07/24 18:33 DC Morphine Sulfate 2 mg Q4HPRN PRN IV SEVERE PAIN (7-10 PAIN SCALE) 09/07/24 18:45 Laboratory Labs Test 09/07/24 15:37 Range/Units White Blood Count 2.1 L 4.4-10.8 10^3/uL Red Blood Count 2.69 L 4.0-5.20 10^6/uL Hemoglobin 9.7 L 12.2-16.2 g/dL Hematocrit 28.6 L 36.0-46.0 % Mean Corpuscular Volume 106.5 H 80.0-100.0 fL Mean Corpuscular Hemoglobin 35.9 H 28.0-32.0 pg Mean Corpuscular Hemoglobin Concent 33.7 32.0-36.0 g/dL Red Cell Distribution Width 16.0 H 11.8-14.3 % Platelet Count 77 L 140-450 10^3/uL Mean Platelet Volume 7.7 6.9-10.8 fL Neutrophils (%) (Auto) 37.0-80.0 % Lymphocytes (%) (Auto) 10.0-50.0 % Monocytes (%) (Auto) 0.0-12.0 % Basophils (%) (Auto) 0.0-2.0 % Neutrophils # (Auto) 1.6-8.6 10 ^3/uL Lymphocytes # (Auto) 0.4-5.4 10 ^3/uL Monocytes # (Auto) 0-1.3 10 ^3/uL Differential Total Cells Counted 100.0 100 Neutrophils % (Manual) 42 37.0-80.0 Band Neutrophils % (Manual) 0 Lymphocytes % (Manual) 52 H 10.0-50.0 Monocytes % (Manual) 4 0-12 Eosinophils % (Manual) 2 0-7 Basophils % (Manual) 0 0.0-2.0 Metamyelocytes % (manual) 0 Myelocytes % (Manual) 0 Promyelocytes % (Manual) 0 Blast Cells % (Manual) 0 Reactive Lymphocytes 0 Platelet Estimate Decreased Prothrombin Time 11.3 9.3-11.8 sec Prothrombin Time INR 1.07 0.9-1.15 Activated Partial Thromboplast Time 29.3 24.5-34.5 SEC Sodium Level 140 136-145 mmol/L Potassium Level 4.1 3.5-5.1 mmol/L Chloride Level 109 H 98-107 mmol/L Carbon Dioxide Level 27 20-31 mmol/L Anion Gap 4 L 5-15 Blood Urea Nitrogen 7 L 9-23 mg/dL Creatinine 0.63 0.550-1.02 mg/dL Glomerular Filtration Rate Calc 90 >90 mL/min BUN/Creatinine Ratio 11.1 10.0-20.0 Serum Glucose 105 74-106 mg/dL Calcium Level 9.6 8.7-10.4 mg/dL Total Bilirubin 0.9 0.2-1.0 mg/dL Aspartate Amino Transferase (AST) 91 H 13-40 U/L Alanine Aminotransferase (ALT) 59 H 7-40 U/L Alkaline Phosphatase 79 46-116 U/L Total Protein 6.5 5.7-8.2 g/dL Albumin 3.9 3.2-4.8 g/dL Examination: GENERAL:Normal, HEENT:Normal, NECK:Normal, LUNGS:Abnormal, CVS:Abnormal, ABDOMEN:Normal, SKIN:Normal, NEURO:Normal, :Abnormal Problem List/Assessment/Plan Problems: (1) Lesion of lumbar spine (2) Generalized weakness Assessment and Plan 1. Lytic lesion in the L1 vertebral body. Malignancy is not excluded. findings from CT lumbar 2. MRI lumbar shows > 1. Diffuse reduction in bone marrow signal throughout the visualized osseous structures, most probably due to red marrow reconversion, which can be seen in the setting of obesity, heavy smoking, diabetes, chronic anemia or other etiologies. The differential diagnosis includes myeloproliferat angélica/lymphoproliferative diseases, iron deposition related pathologies or less likely diffuse skeletal metastasis. Recommend clinical and biochemical correlation. 2. T1 and T2 hyperintense lesions in T11, L1 and L4 vertebral bodies measuring up to 2 cm following fat signal on all sequences most compatible with benign hemangiomas. These appear partially lytic in the recent CT scan and correspond to the abnormality described in L1. 3. Multilevel degenerative disc disease and posterior facet arthropathy with no evidence of nerve impingement. With the above findings this patient would benefit from a neurosurgical evaluation which is not available in the area. This patient should be transferred to a higher level of care to evaluate the etiology and proper treatment of her findings Continue supportive care per admitting team's discretion Ensure coverage with muscle relaxers for prevention and muscle spasms Ensure adequate oral analgesia or IV analgesia to control pain PT evaluation and treatment recommendations Call with questions José [facility] Orthopaedic Spine Surgery nurse practitioner For Dr Rose Mcwilliams Patient was examined, chart reviewed, labs evaluated, and diagnostic studies and findings analyzed. Case was discussed with Dr. Dontrell Mcwilliams who formulated the plan of care. This medical document was created using an electronic medical record system with [employer] dictation system. Although this document has been carefully reviewed, there might still be some phonetic and typographical errors. These areas are purely typographical due to imperfections of the software programs, and do not reflect any compromise in the patient's medical care. Plan discussed with Plan discussed with: Patient, Other (message left for Britta SMALL) JAMAAL SUBRAMANIAN NP Sep 07, 2024 19:01
[2024-09-07 20:00] VITALS: BP 127/49; PULSE 68; RESP 18; TEMP 98; O2SAT 98
--- NOTE | 2024-09-07 20:34 | DVH ---
EXAM: CT HEAD WITHOUT CONTRAST INDICATION: acute syncope TECHNIQUE: CT of the head without intravenous contrast. Radiation Dose Information: CT Dose: CTDI volume is 51.39 mGy. Dose-length product is 910.19 mGy*cm The dose indicators for CT are the volume Computed Tomography (CT) Dose Index (CTDIvol) and the Dose Length Product (DLP), and are measured in units of mGy and mGy-cm, respectively. These indicators are not patient dose, but values generated from the CT scanner acquisition factors. The report includes radiation exposure data for exposures received during this examination. COMPARISON: CT HEAD WITHOUT CONTRAST on DOS: 02/07/24, CERVICAL WITHOUT CONTRAST on DOS: 04/20/20, HEAD WITHOUT CONTRAST on DOS: 04/20/20 FINDINGS: There is no evidence of acute intracranial hemorrhage, extra-axial collection, mass effect, midline s hift, herniation or hydrocephalus. Area of decreased attenuation in the right basal ganglion consistent with old infarct The ventricles, sulci and cisterns are age appropriate. The terry-white differentiation is intact. Patchy periventricular and subcortical white matter hypoattenuation is nonspecific but may be related to small vessel ischemic disease. Soft tissue densities in the lower portion of the maxillary sinuses may represent inclusion cysts or polyps. and mastoid air cells are clear. The surrounding soft tissues and osseous structures are unremarkable. IMPRESSION: 1. No acute intracranial hemorrhage. 2. Stable old lacunar infarct right basal ganglion 3. No significant change from 02/07/2024
[2024-09-07] MEDS: TAMSULOSIN HYDROCHLORIDE 0.4 MG CAP PO SCH (22:00)
[2024-09-07] MEDS ORDERED: metroNIDAZOLE 500MG/100ML 100 ML IV SCH (22:00)
[2024-09-07] MEDS: PANTOPRAZOLE 40 MG/10 ML VIAL INJ IV SCH (22:00)
[2024-09-07] MEDS: HYDROmorphone HCL 2 MG/ML VL/or syr IV ONE (22:34)
[2024-09-07 22:51] VITALS: BP 139/52; PULSE 66; RESP 20; O2SAT 95
[2024-09-08] VITALS (8 sets, daily range): BP systolic 116–139; BP diastolic 40–59; PULSE 65–77; RESP 16–21; TEMP 97.3–98.7; O2SAT 90–98
[2024-09-08] MEDS: PIPERACILLIN-TAZOB 3.375GM 100 ML IV SCH (02:17)
[2024-09-08] MEDS: HYDROmorphone HCL 2 MG/ML VL/or syr IV PRN (05:11)
[2024-09-08 07:29] LABS: Urine Bacteria None Seen /hpf (None Seen)
--- NOTE | 2024-09-08 07:33 | ECG ---
[facility] Test Date: 2024-09-07 Test Time: 10:56:08 Pat Name: EMELIA JONESKDepartment: ED Room: 0205T Gender: F Graphic Art Designer: ELIZABETH : 1945 Requested By: ESE HERNANDEZ Order Number: [id number] Reading MD: Toan Crum Measurements Intervals [place] Rate: 86 P: 258 AR: 220 QRS: -12 QRSD: 141 T: -44 QT: 453 QTc: 542 Interpretive Statements Pacemaker spikes or artifacts Sinus or ectopic atrial rhythm Prolonged AR interval Probable left atrial enlargement Right bundle branch block Electronically Signed On 09-08-2024 13:11:57 PST by Toan Crum Please click the below link to view image of tracing.
[2024-09-08 08:08] LABS: Urine Blood Negative /uL (Negative); Urine Clarity Clear (Clear); Urine Color Light-Yellow (Yellow); Urine Protein, UAD Negative (Negative); Urine Specific Gravity 1.013 (1.001-1.035); Urine Squamous Epithelial Cell FEW /hpf (<5); Urine Urobilinogen Normal (Negative); Urine WBC 1 /hpf (0 - 5); Urine pH 7.5 (5.0-9.0)
[2024-09-08] MEDS ORDERED: cefTRIAXone 1GM/50ML D5W 50 ML IV SCH (09:00)
[2024-09-08] MEDS ORDERED: GADOTERATE MEG 10 MMOL/20ml INJ (0.5MMOL/ml) IV ONE (09:42)
[2024-09-08 11:16] LABS: Basophils # (auto) 0 10 ^3/uL (0-0.2); Hemoglobin 9.4 g/dL (12.2-16.2); Monocytes # (auto) 0.2 10 ^3/uL (0-1.3); Monocytes % (auto) 11.4 % (0.0-12.0); Neutrophils # (auto) 0.8 10 ^3/uL (1.6-8.6); Nucleated Red Blood Cells % 0.2 %; White Blood Cell 2.1 10^3/uL (4.4-10.8)
[2024-09-08 11:20] LABS: Basophils % (auto) 1.3 % (0.0-2.0); Eosinophils # (auto) 0.1 10 ^3/uL (0-0.8); Eosinophils % (auto) 3.1 % (0.0-7.0); Lymphocytes % (auto) 47.1 % (10.0-50.0); Mean Corpuscular Hemoglobin 36.7 pg (28.0-32.0); Mean Corpuscular Hgb Conc. 33.7 g/dL (32.0-36.0); Mean Corpuscular Volume 108.9 fL (80.0-100.0); Neutrophils % (auto) 37.1 % (37.0-80.0); Platelet Count (auto) 78 10^3/uL (140-450); Red Blood Cells 2.57 10^6/uL (4.0-5.20); Red Cell Distribution Width 17.1 % (11.8-14.3)
[2024-09-08 11:43] LABS: Albumin 3.7 g/dL (3.2-4.8); Alkaline Phosphatase 75 U/L (46-116); Anion Gap 7 (5-15); Bilirubin, Total 0.9 mg/dL (0.2-1.0); Calcium 9.3 mg/dL (8.7-10.4); Carbon Dioxide 25 mmol/L (20-31); Glucose 103 mg/dL (74-106); Potassium 3.8 mmol/L (3.5-5.1); Sodium 142 mmol/L (136-145)
[2024-09-08 11:46] LABS: Alanine Aminotransferase 64 U/L (7-40); Aspartate Aminotransferase 95 U/L (13-40); Blood Urea Nitrogen 7 mg/dL (9-23); Chloride 110 mmol/L (98-107)
[2024-09-08] MEDS: CYANOCOBALAMIN 500 MCG TAB PO SCH (12:35)
[2024-09-08] MEDS: LISINOPRIL 5 MG TAB PO SCH (12:35)
--- NOTE | 2024-09-08 12:56 | DVH ---
EXAM: MRI LUMBAR SPINE WO CONTRAST HISTORY: LYTIC LESION L1 COMPARISON: CT scan of the abdomen and pelvis dated 09/07/2024 TECHNIQUE: MRI was performed utilizing multiple appropriate imaging planes and pulse sequences. FINDINGS: For the purposes of this report, the last square-shaped vertebra is considered L5. Prior to any surg diana, correlation with lumbar spine radiographs should be done. VERTEBRAE: No significant compression deformity is noted. There is diffuse reduction in bone marrow signal. An approximately 2 cm benign hemangioma following fat signal in all of the sequences noted in T11 vertebral body. A 1.2 cm hemangioma is seen in the left side of L1 vertebral body and a 1 cm he mangioma is noted in right superior L4 vertebral body. SPINAL CORD: Terminates at the L1 level. No evidence of cord edema or myelomalacia within the parti ally visualized conus medullaris. PARASPINAL SOFT TISSUES: Unremarkable. INTERVERTEBRAL DISCS: T12-L1: No disc herniation, central canal stenosis or neural foramina narrowing. The posterior facet s and ligamentum flavum are unremarkable. L1-L2: Mild broad-based posterior disc bulge with resultant mild central canal stenosis and mild left neural foraminal stenosis without nerve impingement. L2-L3: 3 mm degenerative grade 1 anterolisthesis of L2 on L3 without pars defects, mild broad-based posterior disc bulge, mild bilateral posterior facet and ligamentum flavum hypertrophy with mild cent ral canal stenosis and mild bilateral neural foramina stenosis without nerve impingement. L3-L4: Mild broad-based posterior disc bulge, mild bilateral posterior facet and ligamenta flava hype rtrophy with resultant mild central canal stenosis and mild bilateral neural foramina stenosis withou t definite nerve impingement. L4-L5: Mild broad-based posterior disc bulge, moderate bilateral posterior facet and ligamenta flav a hypertrophy with resultant mild central canal stenosis and mild bilateral neural foramina stenosis without definite nerve impingement. L5-S1: Mild broad-based posterior disc bulge, moderate right and mild left posterior facet and ligam enta flava hypertrophy with resultant mild central canal stenosis and mild bilateral neural foramina stenosis without definite nerve impingement. OTHER: Bilateral renal cysts are seen measuring up to 3 cm. Few small hepatic cysts are noted. IMPRESSION: 1. Diffuse reduction in bone marrow signal throughout the visualized osseous structures, most probabl y due to red marrow reconversion, which can be seen in the setting of obesity, heavy smoking, diabete s, chronic anemia or other etiologies. The differential diagnosis includes myeloproliferative/lympho proliferative diseases, iron deposition related pathologies or less likely diffuse skeletal metastasi s. Recommend clinical and biochemical correlation. 2. T1 and T2 hyperintense lesions in T11, L1 and L4 vertebral bodies measuring up to 2 cm following f at signal on all sequences most compatible with benign hemangiomas. These appear partially lytic in t he recent CT scan and correspond to the abnormality described in L1. 3. Multilevel degenerative disc disease and posterior facet arthropathy with no evidence of nerve imp ingement.
[2024-09-08 13:53] LABS: Hemoglobin 9.4 g/dL (12.2-16.2)
[2024-09-08 13:56] LABS: Hematocrit 28.6 % (36.0-46.0)
[2024-09-08] MEDS ORDERED: HYDROmorphone HCL 2 MG/ML VL/or syr IV PRN (15:15)
[2024-09-08] MEDS ORDERED: OXYCODONE W/ ACETAMINOPHEN 5/325MG TABLET PO PRN (15:15)
--- NOTE | 2024-09-08 15:39 | DVHPNRES ---
Progress Note Date Seen: Sep 08, 2024 Resident Creating Document: LULA HIDALGO RESIDENT Medical Necessity Reason Pt with a Central, PICC or Fol: No Subjective Review of Systems pt seen and examined at bedside mentions of RUQ pain and back pain, on right side denies any chest pain, sob, cough, n/v/diarrhea Objective vital signs Vital Sign Date Time Temp Pulse Resp B/P (MAP) Pulse Ox O2 Delivery O2 Flow Rate FiO2 09/08/24 12:35 124/52 09/08/24 12:14 97.3 69 17 94 97.3 09/08/24 09:35 Room Air* 0 21 Total Intake and Output 09/07/24 09/07/24 09/08/24 15:00 23:00 07:00 Intake Total 0 ml 100 ml Balance 0 ml 100 ml medications Current Medications Medications Dose Ordered Sig/Nay Route Start Time Stop Time Status Last Admin Dose Admin Cyanocobalamin 1,000 mcg DAILY PO 09/08/24 10:00 09/08/24 12:35 1,000 MCG Ergocalciferol 50,000 unit Q7D PO 09/07/24 12:45 Tamsulosin HCl 0.4 mg HS PO 09/07/24 22:00 Lisinopril 10 mg DAILY PO 09/08/24 10:00 09/08/24 12:35 10 MG Patient Own Medication 1 tab BID PO 09/07/24 22:00 Ondansetron HCl 4 mg Q4HP PRN IV 09/07/24 12:45 Docusate Sodium 100 mg BIDPRN PRN PO 09/07/24 12:45 Nitroglycerin 0.4 mg Q5MINP PRN SL 09/07/24 12:45 Pantoprazole Sodium 40 mg BID IV 09/07/24 22:00 Sodium Chloride 1,000 ml @ 100 mls/hr Q10H IV 09/07/24 12:45 09/08/24 00:25 100 MLS/HR Piperacillin Sod/ Tazobactam Sod 100 ml @ 25 mls/hr Q8H IV 09/08/24 02:00 09/08/24 12:33 25 MLS/HR Hydromorphone HCl 0.25 mg Q4HPRN PRN IV 09/07/24 18:45 09/08/24 11:27 0.25 MG Examination Physical exam Gen: alert and oriented X4, no distress CVS: normal s1/s2 Resp: bilateral a/e present GI : RUQ tenderness Neuro : no focal deficit, cranial nerves 2-12 grossly intact, normal sensory and motor exam laboratory and microbiology Laboratory Tests 09/08/24 13:30 09/08/24 09:50 Test 09/08/24 09:50 Range/Units Serum Glucose 103 74-106 mg/dL Labs and/or images reviewed: Labs reviewed by me, Image(s) reviewed by me Problem List/Assessment/Plan Problem List/Assessment/Plan Assessment/Plan #Syncope likely due to ?GI bleed -head CT -orthostatic hypotension -echo considering history of CAD -EKG -troponin #Symptomatic anemia -due to diverticular bleed -h and h #pancytopenia -hem/onc consult #transaminitis -hep b/c # hematochezia likely due to diverticular bleed GI consult IV Protonix Clear liquid diet started with GI # Multilevel degenerative disc disease and posterior facet arthropathy -pain medications #2 small hypodense lesions in the liver 114 mm lesion in the dome of the liver 2nd 17 18 mm nodule in the right lobe of the liver. #11 mm lesion in the left lobe of the liver -seen on CT #red marrow reconversion -seen on CT #?benign hemangiomas T1 and T2 hyperintense lesions in T11, L1 and L4 vertebral bodies measuring up to 2 cm following fat signal # bilateral nonobstructive renal stones Seen on CT # chronic CHF -we will resume home medication # history of stroke -avoid aspirin considering GI bleed # hyperlipidemia Resume statins # hypertension we will resume home medications # coronary artery disease status post CABG we will hold aspirin considering GI bleed. # history of DVT Hold Lovenox considering GI bleed Case discussion with Dr Lou code status , full code Plan discussed with: Patient, Other My Orders My Orders Orders - LULA HIDALGO RESIDENT Procedure Category Date Status Time Hydromorphone PHA 09/08/24 Logged Injection (Dilaudid 15:15 Acetaminophen Tablet PHA 09/08/24 Transmitted (Tylenol Tablet) 18:00 Oxycodone W/ Acet PHA 09/08/24 Transmitted 5/325mg Tab (Percocet 15:15 Date of Service: Sep 08, 2024 Billing Provider: ASHLEE LOU MD Common Visit Codes: [id number] INP/OBS CARE(HIGH) LULA HIDALGO RESIDENT Sep 08, 2024 15:39 ASHLEE LOU MD Sep 11, 2024 21:34
[2024-09-08] MEDS: oxyCODONE HCL 5MG TAB PO PRN (16:35)
--- NOTE | 2024-09-08 17:42 | DVH ---
Procedure: CT CHEST WITHOUT CONTRAST Reason for study/Clinical History: spine malligancy lung as a primary source Comparison Study: None available at time of dictation. Exam Date: 09/08/2024 05:12 PM TECHNIQUE: Multidetector CT of the chest was performed from the lung apices to the upper abdomen with out the use of intravenous contract. Axial, coronal and sagittal multiplanar reformats were performed . Radiation Dose Information: CT Dose: CTDI volume is 11.2 mGy. Dose-length product is 356.02 mGy*cm The dose indicators for CT are the volume Computed Tomography (CT) Dose Index (CTDIvol) and the Dose Length Product (DLP), and are measured in units of mGy and mGy-cm, respectively. These indicators are not patient dose, but values generated from the CT scanner acquisition factors. The report includes radiation exposure data for exposures received during this examination. FINDINGS: Lower neck: Normal thyroid. Lungs: No focal consolidation, pleural effusion or pneumothorax. Heart/Vascular Structures: Enlarged cardiac size. No pericardial effusion. Sternal wire sutures Lymph Nodes: No adenopathy Pleura: No pleural effusion or significant pneumothorax. Musculoskeletal: No acute osseous abnormality. Vertical striations in the vertebral bodies of T3 and T11 suggesting osseous hemangiomas. Soft tissues: Normal. Upper abdomen: 2 small hypodense lesions in the liver 114 mm lesion in the dome of the liver 2nd 17 1 8 mm nodule in the right lobe of the liver. 11 mm lesion in the left lobe of the liver IMPRESSION: 1. No pulmonary nodules or mass. 2. Findings suggesting vertebral hemangiomas at T3 and T11.. Radiation optimization: All CT scans at this facility use at least one of these dose optimization florentin hniques: automated exposure control mA and/or kV adjustment per patient size (includes targeted exam s where dose is matched to clinical indication) or iterative reconstruction.
--- NOTE | 2024-09-08 17:46 | DVHINCON2 ---
Date of service: Sep 08, [address] Good Reason for Consultation Abdominal pain syncopal episode History of Present Illness This 79-year-old female with a history of asthma congestive heart failure CVA hyperlipidemia presented to the emergency room with complaints of weakness dizziness and had some bleeding he also had some constipation apparently she had a syncopal episode and almost hit the ground [place] patient had some blood in the urine but denies any gross hematemesis or melena or hematochezia CT of the abdomen and pelvis showed kidney stones as well as diverticulosis. There is also a suspicion of a small lytic lesion on L1 in the spine. Patient has some nausea vomiting no constipation no hematochezia or melena. Past Medical History CVA hyperlipidemia hypertension kidney problems with stones coronary artery bypass graft and asthma Past Surgical History Hysterectomy tonsillectomy coronary artery bypass graft hernia surgery and appendix Family History: CHF (congestive heart failure) G8 MOTHER G8 FATHER Cancer G8 SISTER Cancer of colon G8 SISTER Family history: Cardiovascular disease G8 FATHER G8 BROTHER Renal stone G8 MOTHER Stroke G8 FATHER G8 BROTHER Family History Noncontributory Social History Denies smoking or drinking Allergies: Coded Allergies: Acetaminophen (Unverified Allergy, Severe, 04/03/14) Ketorolac Tromethamine (Unverified Allergy, Severe, 04/03/14) NSAIDs (Unverified Allergy, Severe, 04/03/14) Tramadol (Unverified Allergy, Severe, 04/03/14) Metronidazole (Verified Allergy, Intermediate, FACIAL NUMBNESS, 05/22/14) Enoxaparin (Unverified Allergy, Unknown, 05/09/24) Iodine (Verified Allergy, Unknown, 11/15/16) Promethazine (Unverified Allergy, Unknown, 05/02/14) Uncoded Allergies: MORPHI (Allergy, Intermediate, SWELLING , 09/07/24) Home Meds Active Scripts Phenazopyridine HCl (Phenazopyridine Hydrochol) 200 Mg Tab, 200 MG PO TID PRN, #9 TAB prn urinary pain Prov:MAVIS WYMAN MD 09/07/24 Cephalexin Monohydrate (Cephalexin) 500 Mg Cap, 1 CAP PO QID for 10 Days, #40 CAP Prov:MAVIS WYMAN MD 09/07/24 Ergocalciferol (VITAMIN D 30021 UNIT) 50,000 [place], [address] UNIT PO Q7D for 90 Days, #14 CAP Prov:TEJAS HORNE [facility] 06/16/24 Diphenhydramine Hcl (BENADRYL CAPSULE) 25 Mg Cp, 25 MG PO Q4HP PRN for 7 Days, #15 CAP Prov:TEJAS HORNE [facility] 06/16/24 Cyanocobalamin (Gnp Vitamin B12) 500 Mcg Tab, 1000 MCG PO DAILY for 90 Days, #180 TAB Prov:TEJAS HORNE [facility] 06/16/24 Cephalexin (KEFLEX CAPSULE) 250 Mg Cp, 500 MG PO BID for 5 Days, #20 CAP Prov:TEJAS HORNE [facility] 06/16/24 Tamsulosin Hcl (Flomax) 0.4 Mg Cap, 0.4 MG PO QPM for 30 Days, #30 CAP Prov:THIAGO MOSCOSO [facility] 05/10/24 Lisinopril (Lisinopril) 5 Mg Tab, 10 MG PO DAILY for 30 Days, #60 TAB Prov:THIAGO MOSCOSO [facility] 05/10/24 Ergocalciferol (VITAMIN D 33504 UNIT) 50,000 [place], [address] UNIT PO Q7D for 30 Days, #10 CAP Prov:THIAGO MOSCOSO [facility] 05/10/24 Cyanocobalamin (Gnp Vitamin B12) 500 Mcg Tab, 500 MCG PO DAILY for 30 Days, #30 TAB Prov:THIAGO MOSCOSO [facility] 05/10/24 Reported Medications Methenamine Hippurate (Methenamine Hippurate) 1 Gm Tab, 1 TAB PO BID for 30 Days, #60 06/12/24 Tamsulosin Hcl (Tamsulosin Hcl) 0.4 Mg Cap, 1 CAP PO DAILY for 30 Days, #30 06/12/24 Phenazopyridine HCl (Phenazopyridine Hydrochol) 200 Mg Tab, 1 TAB PO TID 06/10/24 Oxycodone Hcl (OXYCODONE HCL) 5 Mg Tb, 15 MG PO Q4HR, TAB 06/10/24 Potassium Chloride (Potassium Chloride ER) 20 Meq Tab, 20 MEQ PO BID, TAB 02/08/24 Apixaban Base (ELIQUIS) 5 Mg Tab, 2.5 TAB PO BID 01/29/24 Lisinopril (Lisinopril) 10 Mg Tab, 1 TAB PO DAILY 01/29/24 Current Medications Current Medications Medications (Trade) Dose Ordered Sig/Nay Route PRN Reason Start Time Stop Time Status Last Admin Cyanocobalamin (Vitamin B-12) 1,000 mcg DAILY PO 09/08/24 10:00 09/08/24 12:35 Tamsulosin HCl (Flomax) 0.4 mg HS PO 09/07/24 22:00 Lisinopril (Zestril Tablet) 10 mg DAILY PO 09/08/24 10:00 09/08/24 12:35 Patient Own Medication 1 tab BID PO 09/07/24 22:00 09/08/24 15:33 DC Pantoprazole Sodium (Protonix) 40 mg BID IV 09/07/24 22:00 Ceftriaxone Sodium 50 ml @ 100 mls/hr DAILY@09 IV 09/08/24 09:00 09/07/24 18:51 DC Acetaminophen/ Hydrocodone Bitart ([place] 5/325MG Tab) 1 tab Q6HPRN PRN PO SEVERE PAIN (7-10 PAIN SCALE) 09/07/24 18:30 09/07/24 18:33 DC Morphine Sulfate 2 mg Q4HPRN PRN IV SEVERE PAIN (7-10 PAIN SCALE) 09/07/24 18:45 09/07/24 19:10 DC Metronidazole 100 ml @ 100 mls/hr Q8HR IV 09/07/24 22:00 09/07/24 18:51 DC Piperacillin Sod/ Tazobactam Sod 100 ml @ 25 mls/hr Q8H IV 09/08/24 02:00 09/08/24 12:33 Hydromorphone HCl (Dilaudid Injection) 0.25 mg Q4HPRN PRN IV MODERATE PAIN (4-6 PAIN SCALE) 09/07/24 18:45 09/08/24 15:16 DC 09/08/24 11:27 Hydromorphone HCl (Dilaudid Injection) 0.5 mg Q8HPRN PRN IV SEVERE PAIN (7-10 PAIN SCALE) 09/08/24 15:15 09/08/24 15:33 DC Acetaminophen (Tylenol Tablet) 650 mg Q6HP PO 09/08/24 18:00 09/08/24 15:33 DC Oxycodone/ Acetaminophen (Percocet 5/ 325MG Tablet) 1 tab Q6HP PRN PO MODERATE PAIN (4-6 PAIN SCALE) 09/08/24 15:15 09/08/24 15:33 DC Oxycodone HCl 5 mg Q6HP PRN PO SEVERE PAIN (7-10 PAIN SCALE) 09/08/24 15:30 09/08/24 16:35 Review of Systems Noncontributory Vital Signs Vital Signs Date Time Temp Pulse Resp B/P (MAP) Pulse Ox O2 Delivery O2 Flow Rate FiO2 09/08/24 17:05 97.9 76 21 135/54 (81) 95 97.9 09/08/24 09:35 Room Air* 0 21 Physical Exam Moderately built and nourished female in no acute distress vital signs stable HEENT examination no pallor no icterus Neck is supple Lungs clear Cardiovascular unremarkable Abdomen soft no tenderness no rigidity no guarding no masses bowel sounds no Extremities no edema no varicosities no clubbing CT scan showed diverticulosis and kidney stones gallbladder stones as well as L1 lesion Labs/Diagnostic Data Labs Test 09/08/24 13:30 09/08/24 09:50 09/08/24 05:20 09/07/24 15:37 Range/Units Hemoglobin 9.4 L 12.2-16.2 g/dL Hematocrit 28.6 L 36.0-46.0 % Troponin I High Sensitivity 3 L </=34 ng/L White Blood Count 2.1 L 4.4-10.8 10^3/uL Red Blood Count 2.57 L 4.0-5.20 10^6/uL Mean Corpuscular Volume 108.9 H 80.0-100.0 fL Mean Corpuscular Hemoglobin 36.7 H 28.0-32.0 pg Mean Corpuscular Hemoglobin Concent 33.7 32.0-36.0 g/dL Red Cell Distribution Width 17.1 H 11.8-14.3 % Platelet Count 78 L 140-450 10^3/uL Mean Platelet Volume 7.7 6.9-10.8 fL Neutrophils (%) (Auto) 37.1 37.0-80.0 % Lymphocytes (%) (Auto) 47.1 10.0-50.0 % Monocytes (%) (Auto) 11.4 0.0-12.0 % Eosinophils (%) (Auto) 3.1 0.0-7.0 % Basophils (%) (Auto) 1.3 0.0-2.0 % Neutrophils # (Auto) 0.8 L 1.6-8.6 10 ^3/uL Lymphocytes # (Auto) 1.0 0.4-5.4 10 ^3/uL Monocytes # (Auto) 0.2 0-1.3 10 ^3/uL Eosinophils # (Auto) 0.1 0-0.8 10 ^3/uL Basophils # (Auto) 0 0-0.2 10 ^3/uL Nucleated Red Blood Cells 0.2 % Sodium Level 142 136-145 mmol/L Potassium Level 3.8 3.5-5.1 mmol/L Chloride Level 110 H 98-107 mmol/L Carbon Dioxide Level 25 20-31 mmol/L Anion Gap 7 5-15 Blood Urea Nitrogen 7 L 9-23 mg/dL Creatinine 0.70 0.550-1.02 mg/dL Glomerular Filtration Rate Calc 88 >90 mL/min BUN/Creatinine Ratio 10.0 10.0-20.0 Serum Glucose 103 74-106 mg/dL Calcium Level 9.3 8.7-10.4 mg/dL Total Bilirubin 0.9 0.2-1.0 mg/dL Aspartate Amino Transferase (AST) 95 H 13-40 U/L Alanine Aminotransferase (ALT) 64 H 7-40 U/L Alkaline Phosphatase 75 46-116 U/L Total Protein 6.0 5.7-8.2 g/dL Albumin 3.7 3.2-4.8 g/dL Urine Color Light-yellow Yellow Urine Clarity Clear Clear Urine pH 7.5 5.0-9.0 Urine Specific [place] 1.013 1.001-1.035 Urine Protein Negative Negative Urine Ketones Negative Negative Urine Blood Negative Negative /uL Urine Nitrite Negative Negative Urine Bilirubin Negative Negative Urine Urobilinogen Normal Negative mg/dL Urine Leukocyte Esterase Negative Negative /uL Urine RBC None seen 0 - 4 /hpf Urine WBC 1 0 - 5 /hpf Urine Squamous Epithelial Cells Few <5 /hpf Urine Bacteria None seen None Seen /hpf Urine Glucose Normal Normal mg/dL Differential Total Cells Counted 100.0 100 Neutrophils % (Manual) 42 37.0-80.0 Band Neutrophils % (Manual) 0 Lymphocytes % (Manual) 52 H 10.0-50.0 Monocytes % (Manual) 4 0-12 Eosinophils % (Manual) 2 0-7 Basophils % (Manual) 0 0.0-2.0 Metamyelocytes % (manual) 0 Myelocytes % (Manual) 0 Promyelocytes % (Manual) 0 Blast Cells % (Manual) 0 Reactive Lymphocytes 0 Platelet Estimate Decreased Prothrombin Time 11.3 9.3-11.8 sec Prothrombin Time INR 1.07 0.9-1.15 Activated Partial Thromboplast Time 29.3 24.5-34.5 SEC Assessment 79-year-old female with a history of asthma congestive heart failure CVA hyperlipidemia hypertension kidney stones admitted with complaints of severe abdominal pain pain was in the flank as well as in the right upper quadrant area close to the kidneys apparently according to the patient. And had some hematuria and denied any hematemesis melena or hematochezia. CT scan showed some diverticulosis and kidney stones. Patient has got DVT and atrial fibrillation for which she takes Eliquis Physical examination abdomen is soft nontender no masses bowel sounds normal Clinical impression of the abdominal pain possible renal etiology some back pain has got severe degenerative arthritis also on the CT scan with some lytic lesion which may have to be checked into GI bleeding or no evidence of any gross abnormal in the to in the CT scan of the abdomen except for diverticulosis. The abdominal pain and symptoms are unlikely to be GI of GI origin at this time no gross GI bleeding at this Plan/Recommendation We will recommend Stool for occult blood Symptomatic from formed diverticulosis And further workup for the pain including Urology consult etc. as necessary. We will be to glad to re-evaluate if this any further GI problems Thank you Dr. Burleson Plan discussed with: Patient EDWARD BURLESON MD Sep 08, 2024 17:46
[2024-09-08] MEDS ORDERED: ACETAMINOPHEN 325 MG TAB PO SCH (18:00)
[2024-09-08] MEDS: ONDANSETRON HCL 4 MG/2 ML VIAL IV PRN (18:49)
--- NOTE | 2024-09-08 21:28 | DVHSR ---
APPROVED REPORT EXAM: Two-dimensional and M-mode echocardiogram with Doppler and color Doppler. Blood Pressure: 116/59 mmHg INDICATION Eval for cardiac function and EF RISK FACTORS Height: 62, Weight: 149 DIMENSIONS LVDd5.0 (3.8-5.7cm)LA (2D)4.6 (1.9-4.0cm)Aortic Root3.1 (2.0-3.7cm) LVDs3.5 (2.5-4.0cm)LA (MM) (1.9-4.0cm)Aortic Cusp Exc1.6 (1.5-2.0cm) EF (%) 58.0 (55-70%)Rt. Atrium4.6 (1.9-4.0cm)Asc. Aorta cm IVSd1.2 (0.7-1.1cm)RV (D) (1.8-2.4cm) PWd1.3 (0.7-1.1cm) Mitral Valve MitralMitral Stenosis E wave0.71m/sMV Mean GR.mmHg A wave0.81m/sMV Peak GR.69mmHg E/A ratio0.92D MVAcm2 DECEL [id number] 1/2 Tim[place] Aortic Valve Aortic ValveAortic Stenosis V10.86m/Priscilla Mean GR.3mmHg V21.41m/Priscilla Peak GR.8mmHg LVOT Diameter1.8 (1.8-2.4cm)Doppler AVA1.55cm2 Pulmonic Valve V21.00m/s Tricuspid Valve TR Velocity2.39m/s [id number] Other Information Technically limited study due to patient laying flat on her back. Conclusion MILD LVH AND MILD LV DIASTOLIC DYSFUNCTION LV EJECTION FRACTION IS 65%' MODERATELY CALCIFIED AORTIC LEAFLETS AORTIC SCLEROSIS NORMAL MV,TV,PV NO EFFUSION SLIGHTLY DILATED RV
[2024-09-08 21:42] LABS: Hematocrit 31.8 % (36.0-46.0); Hemoglobin 10.1 g/dL (12.2-16.2)
[2024-09-08] MEDS: oxyCODONE ER 10 MG TAB PO ONE (23:02)
--- NOTE | 2024-09-11 21:38 | DVHDS2 ---
Discharge Summary Date of Admission Sep 07, 2024 at 12:43 Date of Discharge: Sep 08, 2024 Labs/Diagnostic Data: Laboratory Results Test 09/08/24 21:29 09/08/24 20:30 09/08/24 13:30 09/08/24 09:50 Hemoglobin 10.1 g/dL (12.2-16.2) Hematocrit 31.8 % (36.0-46.0) Stool Occult Blood Negative (Negative) Stool Occult Blood Sample #3 (Negative) Troponin I High Sensitivity 3 ng/L (</=34) White Blood Count 2.1 10^3/uL (4.4-10.8) Red Blood Count 2.57 10^6/uL (4.0-5.20) Mean Corpuscular Volume 108.9 fL (80.0-100.0) Mean Corpuscular Hemoglobin 36.7 pg (28.0-32.0) Mean Corpuscular Hemoglobin Concent 33.7 g/dL (32.0-36.0) Red Cell Distribution Width 17.1 % (11.8-14.3) Platelet Count 78 10^3/uL (140-450) Mean Platelet Volume 7.7 fL (6.9-10.8) Neutrophils (%) (Auto) 37.1 % (37.0-80.0) Lymphocytes (%) (Auto) 47.1 % (10.0-50.0) Monocytes (%) (Auto) 11.4 % (0.0-12.0) Eosinophils (%) (Auto) 3.1 % (0.0-7.0) Basophils (%) (Auto) 1.3 % (0.0-2.0) Neutrophils # (Auto) 0.8 10 ^3/uL (1.6-8.6) Lymphocytes # (Auto) 1.0 10 ^3/uL (0.4-5.4) Monocytes # (Auto) 0.2 10 ^3/uL (0-1.3) Eosinophils # (Auto) 0.1 10 ^3/uL (0-0.8) Basophils # (Auto) 0 10 ^3/uL (0-0.2) Nucleated Red Blood Cells 0.2 % Sodium Level 142 mmol/L (136-145) Potassium Level 3.8 mmol/L (3.5-5.1) Chloride Level 110 mmol/L (98-107) Carbon Dioxide Level 25 mmol/L (20-31) Anion Gap 7 (5-15) Blood Urea Nitrogen 7 mg/dL (9-23) Creatinine 0.70 mg/dL (0.550-1.02) Glomerular Filtration Rate Calc 88 mL/min (>90) BUN/Creatinine Ratio 10.0 (10.0-20.0) Serum Glucose 103 mg/dL (74-106) Calcium Level 9.3 mg/dL (8.7-10.4) Total Bilirubin 0.9 mg/dL (0.2-1.0) Aspartate Amino Transferase (AST) 95 U/L (13-40) Alanine Aminotransferase (ALT) 64 U/L (7-40) Alkaline Phosphatase 75 U/L (46-116) Total Protein 6.0 g/dL (5.7-8.2) Albumin 3.7 g/dL (3.2-4.8) Test 09/08/24 05:20 09/07/24 15:37 Urine Color Light-yellow (Yellow) Urine Clarity Clear (Clear) Urine pH 7.5 (5.0-9.0) Urine Specific [place] 1.013 (1.001-1.035) Urine Protein Negative (Negative) Urine Ketones Negative (Negative) Urine Blood Negative /uL (Negative) Urine Nitrite Negative (Negative) Urine Bilirubin Negative (Negative) Urine Urobilinogen Normal mg/dL (Negative) Urine Leukocyte Esterase Negative /uL (Negative) Urine RBC None seen /hpf (0 - 4) Urine WBC 1 /hpf (0 - 5) Urine Squamous Epithelial Cells Few /hpf (<5) Urine Bacteria None seen /hpf (None Seen) Urine Glucose Normal mg/dL (Normal) Differential Total Cells Counted 100.0 (100) Neutrophils % (Manual) 42 (37.0-80.0) Band Neutrophils % (Manual) 0 Lymphocytes % (Manual) 52 (10.0-50.0) Monocytes % (Manual) 4 (0-12) Eosinophils % (Manual) 2 (0-7) Basophils % (Manual) 0 (0.0-2.0) Metamyelocytes % (manual) 0 Myelocytes % (Manual) 0 Promyelocytes % (Manual) 0 Blast Cells % (Manual) 0 Reactive Lymphocytes 0 Platelet Estimate Decreased Prothrombin Time 11.3 sec (9.3-11.8) Prothrombin Time INR 1.07 (0.9-1.15) Activated Partial Thromboplast Time 29.3 SEC (24.5-34.5) Other Laboratory Tests 09/08/24 21:29 09/08/24 09:50 Brief Hx & Hospital Course: 78 yo F admitted with GI bleed, found to have lytic lession with marrow conversion, seen by ortho spine and was recommended for transfer for neurosurgery eval. Condition at Discharge: Stable Final Diagnosis/Problems List red marrow reconversion Discharge Disposition: Acute Care Facility Discharge Instruct/Medications Diet: See Comment Diet comment: clear liquis Activity: Light activity Follow Up/Referral: transfer to higher level of care Medications: see transfer paper 33 Discharge Statement: "Patient was advised to return to the ER or call 911 if any headaches, dizziness, shortness of breath, chest pain, abdominal pain, bleeding, fevers, or worsening of medical condition. Patient was counseled about treatment plan, medications, possible side effects, patientverbalized understanding. All questions were answered to the best of my ability. This discharge took greater then 30 minutes in planning, reviewing documentation, counseling the patient, and discussing with other team members." ASSESSMENT ASSESSMENT Assessment #Syncope likely due to ?GI bleed -head CT -orthostatic hypotension -echo considering history of CAD -EKG -troponin #Symptomatic anemia -due to diverticular bleed -h and h #pancytopenia -hem/onc consult #transaminitis -hep b/c # hematochezia likely due to diverticular bleed GI consult IV Protonix Clear liquid diet started with GI # Multilevel degenerative disc disease and posterior facet arthropathy -pain medications #2 small hypodense lesions in the liver 114 mm lesion in the dome of the liver 2nd 17 18 mm nodule in the right lobe of the liver. #11 mm lesion in the left lobe of the liver -seen on CT #red marrow reconversion -seen on CT #?benign hemangiomas T1 and T2 hyperintense lesions in T11, L1 and L4 vertebral bodies measuring up to 2 cm following fat signal # bilateral nonobstructive renal stones Seen on CT # chronic CHF -we will resume home medication # history of stroke -avoid aspirin considering GI bleed # hyperlipidemia Resume statins # hypertension we will resume home medications # coronary artery disease status post CABG we will hold aspirin considering GI bleed. Date of Service: Sep 08, 2024 Billing Provider: ASHLEE LOU MD Common Visit Codes: 97373-NSZ/OBS DISCH DAY >30min ASHLEE LOU MD Sep 11, 2024 21:38
== END 2024-09-08 23:25 | disposition short-term general hospital (02) | DRG 378 ==
LOC: ER 10:33 → OVERFLOW 12:43 → CENTRAL 22:23 → TELE-CENTR 09-08 09:47
PROVIDERS: ADMIT Student in an Organized Health Care Education/Training Program; ATTEND Student in an Organized Health Care Education/Training Program
PROC: 05H933Z Insertion of Infusion Device into Right Brachial Vein, Percutaneous Approach (ICD-10-PCS; principal; 2024-09-07)
PROC: B54MZZA Ultrasonography of Right Upper Extremity Veins, Guidance (ICD-10-PCS; 2024-09-07)
DX: K57.31 Diverticulosis of large intestine without perforation or abscess with bleeding (principal); D61.818 Other pancytopenia; R55 Syncope and collapse; R31.9 Hematuria, unspecified; J45.909 Unspecified asthma, uncomplicated; I11.0 Hypertensive heart disease with heart failure; I50.9 Heart failure, unspecified; E78.5 Hyperlipidemia, unspecified; I25.10 Atherosclerotic heart disease of native coronary artery without angina pectoris; I48.91 Unspecified atrial fibrillation; N20.0 Calculus of kidney; D64.9 Anemia, unspecified; Z88.3 Allergy status to other anti-infective agents; Z88.8 Allergy status to other drugs, medicaments and biological substances; Z86.73 Personal history of transient ischemic attack (TIA), and cerebral infarction without residual deficits; Z90.49 Acquired absence of other specified parts of digestive tract; Z87.442 Personal history of urinary calculi; Z82.49 Family history of ischemic heart disease and other diseases of the circulatory system; Z82.3 Family history of stroke; Z90.710 Acquired absence of both cervix and uterus; Z95.1 Presence of aortocoronary bypass graft; I25.2 Old myocardial infarction; Z86.718 Personal history of other venous thrombosis and embolism; Z80.0 Family history of malignant neoplasm of digestive organs
CPT/HCPCS: 36415; 70450; 71045; 71250; 72148; 74176; 80053; 81001; 82270; 83880; 84484; 85007; 85014; 85018; 85025; 85027; 85610; 85730; 86850; 86900; 86901; 93005; 93306; G0378; J2405; J2470; J2543